=== PATIENT | male | born 1980 | race Hispanic/Latino ===

== ENCOUNTER 2017-11-18 11:05 | Observation (INO) | payer MEDICARE ==
--- NOTE | 2017-11-18 12:09 | Emergency Department Report ---
ED Chest Pain HPI - General Chief Complaint: Chest Pain Stated Complaint: CHEST PAIN Time Seen by Provider: 11/18/17 11:41 Source: patient, EMS Mode of arrival: Stretcher Limitations: Physical Limitation - History of Present Illness Initial Comments: 37-year-old male presents via ambulance from Dr. Maddox (copy preparer) office. He was sent I presume for hospitalization for persistent chest pain. He was given nitroglycerin and aspirin and round. He tells me that Dr. Maddox has planned a stress test as an outpatient but instead the patient has been transported for further evaluation in the hospital. He has had chest pain for one month. It certainly does seem to have musculoskeletal components as it is tender to self palpation and worsens on movement. The patient has a history of pacemaker which was removed within the last 2 years. He states he was placed when he was 13 years old for unknown indications. He is followed by cardiology. He has no known history of coronary artery disease. He does not know what his prior cardiac diagnosis was as a teenager. He has a history of hypertension, diabetes and cerebral palsy. MD Complaint: chest pain -: month(s) Onset: during rest Pain Location: substernal (central chest both left and right side) Pain Radiation: none Severity: moderate Quality: other (soreness) Consistency: constant Improves With: nothing Worsens With: movement Context: other re: denies: nausea, vomting, diaphoresis, dyspnea, sense of impending doom Other Symptoms: denies: cough, fever, syncope Treatments Prior to Arrival: none Aspirin use within the Past 7 Days: (0) No - Related Data On Oral Contraceptives: No Home Medications Medication Instructions Recorded Confirmed Last Taken NIFEdipine [] 90 mg PO DAILY 11/18/17 11/18/17 11/18/17 Valsartan/Hydrochlorothiazide 1 each PO DAILY 11/18/17 11/18/17 11/18/17 [Valsartan-Hctz 320-25 mg Tab] Allergies Allergy/AdvReac Type Severity Reaction Status Date / Time Penicillins Allergy Unknown Verified 06/03/14 11:23 Heart Score - HEART Score History: Slightly suspicious EKG: Normal Age: < 45 Risk factors: 1-2 risk factors Troponin: < normal limit HEART Score: 1 - Critical Actions Critical Actions: 0-3 pts:0.9-1.7%risk of adverse cardiac event.Candidate for discharge ED Review of Systems ROS: Stated complaint: CHEST PAIN Other details as noted in HPI Constitutional: denies: chills, fever Eyes: denies: eye pain, eye discharge, vision change ENT: denies: ear pain, throat pain Respiratory: denies: cough, shortness of breath, wheezing Cardiovascular: denies: chest pain, palpitations Endocrine: no symptoms reported Gastrointestinal: denies: abdominal pain, nausea, diarrhea Genitourinary: denies: urgency, dysuria Musculoskeletal: back pain (chronic back pain states takes Tylenol ). denies: joint swelling, arthralgia Skin: denies: rash, lesions Neurological: denies: headache, weakness, paresthesias Psychiatric: denies: anxiety, depression Hematological/Lymphatic: denies: easy bleeding, easy bruising ED Past Medical Hx - Past Medical History Hx Hypertension: Yes Hx Diabetes: Yes (2011) Additional medical history: pt has pacemaker and hx of irregular heart beat. 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 - Surgical History Hx Pacemaker: Yes (PLACED 1992;BATTERY CHANGED 2003) Additional Surgical History: R leg, R arm - Social History Smoking Status: Former Smoker - Medications Home Medications: Home Medications Medication Instructions Recorded Confirmed Last Taken Type NIFEdipine [] 90 mg PO DAILY 11/18/17 11/18/17 11/18/17 History Valsartan/Hydrochlorothiazide 1 each PO DAILY 11/18/17 11/18/17 11/18/17 History [Valsartan-Hctz 320-25 mg Tab] ED Physical Exam - General Limitations: No Limitations General appearance: alert, in no apparent distress - Head Head exam: Present: atraumatic, normocephalic - Eye Eye exam: Present: normal appearance. Absent: scleral icterus - ENT ENT exam: Present: mucous membranes moist - Neck Neck exam: Present: normal inspection - Respiratory Respiratory exam: Present: normal lung sounds bilaterally. Absent: respiratory distress - Cardiovascular Cardiovascular Exam: Present: regular rate, normal rhythm. Absent: systolic murmur, diastolic murmur, rubs, gallop - GI/Abdominal GI/Abdominal exam: Present: soft, normal bowel sounds. Absent: distended, tenderness, guarding, rebound - Rectal Rectal exam: Present: deferred - Extremities Exam Extremities exam: Present: other (contracted right arm) - Back Exam Back exam: Present: normal inspection. Absent: CVA tenderness (R), CVA tenderness (L) - Neurological Exam Neurological exam: Present: alert, oriented X3, motor sensory deficit (chronic right hemiparesis). Absent: CN II-XII intact (right facial paresis) - Psychiatric Psychiatric exam: Present: normal affect, normal mood - Skin Skin exam: Present: warm, dry, intact, normal color. Absent: rash ED Course Vital Signs 11/18/17 11/18/17 11/18/17 11:20 11:36 11:38 Temperature 97.5 F L Pulse Rate 120 H 104 H Respiratory 16 20 20 Rate Blood Pressure 140/100 Blood Pressure 122/84 [Left] O2 Sat by Pulse 95 93 93 Oximetry - Reevaluation(s) Reevaluation #1: Patient remains comfortable. He will be admitted for further evaluation by Dr. Goyal. 11/18/17 13:35 LUDWIG score - Ludwig Score Age > 65: (0) No Aspirin use within the Past 7 Days: (0) No 3 or more CAD Risk Factors: (0) No 2 or more Angina events in past 24 hrs: (0) No Known CAD with more than 50% Stenosis: (0) No Elevated Cardiac Markers: (0) No ST Deviation Greater than 0.5mm: (0) No LUDWIG Score: 0 ED Medical Decision Making - Lab Data Result diagrams: 11/18/17 12:02 11/18/17 12:02 Laboratory Results - last 24 hr 11/18/17 11/18/17 11/18/17 12:02 12:02 12:02 WBC 12.4 H RBC 5.58 H Hgb 15.6 H Hct 46.3 H MCV 83 L MCH 28 MCHC 34 RDW 15.1 Plt Count 137 L Lymph % (Auto) 17.1 Braxton % (Auto) 6.6 Eos % (Auto) 1.7 Baso % (Auto) 0.6 Lymph # 2.1 Braxton # 0.8 Eos # 0.2 Baso # 0.1 Seg Neutrophils % 74.0 H Seg Neutrophils # 9.2 H PT 11.9 L INR 0.84 L APTT 24.1 L D-Dimer < 135.00 Sodium 132 L Potassium 4.1 Chloride 92.8 L Carbon Dioxide 25 Anion Gap 18 BUN 14 Creatinine 0.8 Estimated GFR > 60 BUN/Creatinine Ratio 18 Glucose 248 H Calcium 9.1 Total Bilirubin Direct Bilirubin Indirect Bilirubin AST ALT Alkaline Phosphatase Total Creatine Kinase CK-MB (CK-2) CK-MB (CK-2) Rel Index Troponin T 0.024 NT-Pro-B Natriuret Pep Total Protein Albumin Albumin/Globulin Ratio Urine Color Urine Turbidity Urine pH Ur Specific Maynard Urine Protein Urine Glucose (UA) Urine Ketones Urine Blood Urine Nitrite Urine Bilirubin Urine Urobilinogen Ur Leukocyte Esterase Urine WBC (Auto) Urine RBC (Auto) Urine Opiates Screen Urine Methadone Screen Ur Barbiturates Screen Ur Phencyclidine Scrn Ur Amphetamines Screen U Benzodiazepines Scrn Urine Cocaine Screen U Marijuana (THC) Screen Drugs of Abuse Note 11/18/17 11/18/17 11/18/17 12:02 12:18 12:18 WBC RBC Hgb Hct MCV MCH MCHC RDW Plt Count Lymph % (Auto) Braxton % (Auto) Eos % (Auto) Baso % (Auto) Lymph # Braxton # Eos # Baso # Seg Neutrophils % Seg Neutrophils # PT INR APTT D-Dimer Sodium Potassium Chloride Carbon Dioxide Anion Gap BUN Creatinine Estimated GFR BUN/Creatinine Ratio Glucose Calcium Total Bilirubin 0.60 Direct Bilirubin < 0.2 Indirect Bilirubin 0.4 AST 13 ALT 18 Alkaline Phosphatase 77 Total Creatine Kinase 51 L CK-MB (CK-2) 3.8 CK-MB (CK-2) Rel Index 7.4 H Troponin T NT-Pro-B Natriuret Pep 49.83 Total Protein 6.3 Albumin 3.9 Albumin/Globulin Ratio 1.6 Urine Color Yellow Urine Turbidity Clear Urine pH 6.0 Ur Specific Maynard 1.009 Urine Protein 30 mg/dl Urine Glucose (UA) 150 Urine Ketones Neg Urine Blood Neg Urine Nitrite Neg Urine Bilirubin Neg Urine Urobilinogen < 2.0 Ur Leukocyte Esterase Neg Urine WBC (Auto) < 1.0 Urine RBC (Auto) 2.0 Urine Opiates Screen Presumptive negative Urine Methadone Screen Presumptive negative Ur Barbiturates Screen Presumptive negative Ur Phencyclidine Scrn Presumptive negative Ur Amphetamines Screen Presumptive negative U Benzodiazepines Scrn Presumptive negative Urine Cocaine Screen Presumptive negative U Marijuana (THC) Screen Presumptive negative Drugs of Abuse Note Disclamer - EKG Data -: EKG Interpreted by [place] EKG shows normal: sinus rhythm Rate: normal - EKG Data Interpretation: other (poor R-wave progression, left axis deviation, no acute ischemic changes.) - Radiology Data interpreted by me: Chest x-ray no acute process Critical care attestation.: If time is entered above; I have spent that time in minutes in the direct care of this critically ill patient, excluding procedure time. ED Disposition Clinical Impression: Essential hypertension Chest pain Qualifiers: Chest pain type: unspecified Qualified Code(s): R07.9 - Chest pain, unspecified Cerebral palsy Qualifiers: Cerebral palsy type: unspecified type Qualified Code(s): G80.9 - Cerebral palsy , unspecified Type 2 diabetes mellitus Qualifiers: Diabetes mellitus [employer] insulin use: unspecified [employer] insulin use status Diabetes mellitus complication status: without complication Qualified Code(s): E11.9 - Type 2 diabetes mellitus without complications Disposition: 09 OP ADMIT IP TO THIS HOSP Is pt being admited?: Yes Does the pt Need Aspirin: Yes Condition: Stable Instructions: Chest Pain (ED), Diabetes Mellitus Type 2 in Adults (ED), Hypertension (ED) Referrals: PRIMARY CARE, [Primary Care Provider] - 3-5 Days Time of Disposition: 13:38
[2017-11-18 12:29] LABS: Basophils # (Auto) 0.1 K/mm3 (0.0-0.1); Basophils % (Auto) 0.6 % (0.0-1.8); Eosinophils # (Auto) 0.2 K/mm3 (0.0-0.4); Eosinophils % (Auto) 1.7 % (0.0-4.3); Hematocrit 46.3 % (35.5-45.6); Hemoglobin 15.6 gm/dl (11.8-15.2); Lymphocytes # (Auto) 2.1 K/mm3 (1.2-5.4); Lymphocytes % (Auto) 17.1 % (13.4-35.0); Mean Corpuscular HGB Conc 34 % (32-34); Mean Corpuscular Hemoglobin 28 pg (28-32); Mean Corpuscular Volume 83 fl (84-94); Monocytes # (Auto) 0.8 K/mm3 (0.0-0.8); Monocytes % (Auto) 6.6 % (0.0-7.3); Platelet Count 137 K/mm3 (140-440); Red Blood Count 5.58 M/mm3 (3.65-5.03); Red Cell Distribution Width 15.1 % (13.2-15.2)
[2017-11-18 12:38] LABS: INR 0.84 (0.87-1.13)
[2017-11-18 12:39] LABS: Partial Thromboplastin Time 24.1 Sec. (24.2-36.6)
[2017-11-18 12:43] LABS: Bilirubin,Urine NEG (Negative); Blood,Urine NEG (Negative); Color,Urine Yellow (Yellow); Urobilinogen,Urine < 2.0 mg/dL (<2.0); WBC,Urine < 1.0 /HPF (0.0-6.0)
[2017-11-18 12:48] LABS: Amphetamine Screen,Urine PRESUMPTIVE NEGATIVE; Benzodiazepines Screen,Urine PRESUMPTIVE NEGATIVE; Cannabinoid Screen,Urine PRESUMPTIVE NEGATIVE; Cocaine Screen,Urine PRESUMPTIVE NEGATIVE; Methadone Screen,Urine PRESUMPTIVE NEGATIVE; Opiate Screen,Urine PRESUMPTIVE NEGATIVE
[2017-11-18 13:19] LABS: BUN/Creatinine Ratio 18; Blood Urea Nitrogen 14 mg/dL (9-20); Calcium 9.1 mg/dL (8.4-10.2); Hemolysis Index 9
--- NOTE | 2017-11-18 13:20 | XRay Report ---
PORTABLE CHEST: Chest pain An AP portable view of the chest demonstrates a normal cardiac contour considering the limits of this technique. The lungs are clear with no evidence of infiltrate, fluid or failure. IMPRESSION: Normal portable chest.
[2017-11-18 13:21] LABS: Alanine Aminotransferase 18 units/L (7-56); Albumin 3.9 g/dL (3.9-5); Creatine Kinase MB 3.8 ng/mL (0.0-4.0)
[2017-11-18 13:30] LABS: Bilirubin,Direct < 0.2 mg/dL (0-0.2)
[2017-11-18] MEDS: MORPHINE IV PRN ×2 (16:58→21:06)
[2017-11-18] MEDS: ZOFRAN IV PRN ×2 (16:58→21:06)
[2017-11-19] MEDS ORDERED: SODIUM CHLORIDE FLUSH SYRINGE 10 ML IV PRN (00:58)
[2017-11-19] MEDS ORDERED: ZOFRAN IV PRN (00:58)
[2017-11-19] MEDS ORDERED: D50W (25GM) Syringe IV PRN (00:58)
[2017-11-19] MEDS ORDERED: TYLENOL PO PRN (00:58)
[2017-11-19] MEDS: MORPHINE IV PRN ×3 (05:57→21:35)
--- NOTE | 2017-11-19 06:57 | Event Note ---
Date: 11/18/17 See H/p in reports
--- NOTE | 2017-11-19 07:17 | History and Physical Report ---
CHIEF COMPLAINT: Left-sided chest pain since 1 month. HISTORY OF PRESENT ILLNESS: The patient is a 37-year-old male with a history of permanent pacemaker insertion about 5 years ago and removal recently who comes in for persistent chest pain of one month duration. The patient was supposed to have a stress test in [facility]' office. Because of the quality of the chest pain, the patient was referred to [facility] for evaluation of chest pain and possible stress test. The patient complains of retrosternal chest pain, intermittent in nature about, 8/10, dull to sharp in quality. He follows with Cardiology for his pacemaker, which was removed recently. No exacerbating or relieving factors. No radiation. No palpitations, diaphoresis, or shortness of breath. PAST MEDICAL HISTORY: significant for hypertension, diabetes, pacemaker for irregular heart, mild cerebral palsy. PAST SURGICAL HISTORY: Permanent pacemaker on the right side of the chest and recent removal. Also surgeries on lower extremities. SOCIAL HISTORY: Former smoker, stopped smoking. FAMILY HISTORY: Significant for hypertension. CURRENT MEDICATIONS: Nifedipine 90 mg once a day and valsartan/hydrochlorothiazide 320/25 once a day. FAMILY HISTORY: Significant for hypertension. REVIEW OF SYSTEMS: A 14-point review of systems done, essentially negative other than the chest pain and some slight shortness of breath on exertion. PHYSICAL EXAMINATION: GENERAL: Young male, cooperative during examination. VITAL SIGNS: Blood pressure is 114/77, temperature is 98, pulse 95, respiratory rate is 17. HEENT: Unremarkable. Pupils equal and reactive. NECK: Supple, no lymphadenopathy, no thyromegaly. LUNGS: Clear to auscultation and percussion. Good air entry. CARDIOVASCULAR: S1, S2 heard. No gallop, no murmur, no rub. Apical impulse in left fifth intercostal space and midclavicular line. ABDOMEN: Soft and benign. No hepatosplenomegaly. No guarding, no rigidity. Hernial orifices are normal. EXTREMITIES: Good pedal pulses. No pedal edema. CENTRAL NERVOUS SYSTEM: Alert and oriented x 4, nonfocal exam. LABORATORY DATA: Labs are significant for white count of 12,400, hemoglobin of 15.6, hematocrit of 46.3, and platelet count of 137. D-dimer is less than 135. Glucose is 248. Sodium is 132, potassium is 4.1. Drug screen was essentially negative. Urine was negative. EKG shows sinus tachycardia, heart rate of 100. Nonspecific ST-T wave changes. 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 ASSESSMENT AND PLAN: 1. Acute coronary syndrome, serial troponins and Lexiscan in the morning. 2. Hyponatremia, mild. Should correct with IV fluids. 3. Type 2 diabetes, coverage for now. Check hemoglobin A1c. Adjust medications. 4. Hypertension. Continue valsartan and nifedipine. 5. Thrombocytopenia, mild. 6. DVT prophylaxis, heparin was not initiated because of the thrombocytopenia. SCDs only. Cardiology consult requested. ADDENDUM: Type 2 diabetes. The patient is not on any medications. The patient initiated on metformin and glimepiride 4 mg once a day. His hemoglobin A1c is high at 9.7. The patient to be counseled about his diabetes by the hospitalist team. JOB# [id number] IVANA/BIB
--- NOTE | 2017-11-19 07:20 | History and Physical Report ---
CONTINUATION LABORATORY DATA: Labs are significant for white count of 12,400, hemoglobin of 15.6, hematocrit of 46.3, and platelet count of 137. D-dimer is less than 135. Glucose is 248. Sodium is 132, potassium is 4.1. Drug screen was essentially negative. Urine was negative. EKG shows sinus tachycardia, heart rate of 100. Nonspecific ST-T wave changes. 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 ASSESSMENT AND PLAN: 1. Acute coronary syndrome, serial troponins and Lexiscan in the morning. 2. Hyponatremia, mild. Should correct with IV fluids. 3. Type 2 diabetes, coverage for now. Check hemoglobin A1c. Adjust medications. 4. Hypertension. Continue valsartan and nifedipine. 5. Thrombocytopenia, mild. 6. DVT prophylaxis, heparin was not initiated because of the thrombocytopenia. SCDs only. Cardiology consult requested. JOB# [id number] IVANA/BIB
[2017-11-19] MEDS ORDERED: LEXISCAN IV ONE ×2 (08:15→08:32)
[2017-11-19] MEDS: GLUCOPHAGE PO SCH ×2 (08:38→18:08)
[2017-11-19] MEDS: AMARYL PO SCH (08:38)
[2017-11-19] MEDS: HumaLOG SUB-Q SCH ×3 (08:38→22:09)
--- NOTE | 2017-11-19 10:05 | Discharge Summary ---
Providers - Providers Date of Admission: 11/18/17 12:23 Date of discharge: 11/20/17 Attending physician: CASSIE MAXWELL MD 11/19/17 00:58 Consult to Physician [CONS] Routine Comment: Consulting Provider: SALLY BAILON Physician Instructions: Reason For Exam: ACS Primary care physician: [employer] Hospitalization Condition: Stable Exam - Constitutional Vitals: Temp Pulse Resp BP Pulse Ox 97.8 F 80 20 139/97 94 11/19/17 04:49 11/19/17 04:49 11/19/17 04:49 11/19/17 04:49 11/19/17 04:49 Plan Follow up with: PRIMARY CARE, [Primary Care Provider] - 3-5 Days Prescriptions: AtorvaSTATin [Lipitor] 40 mg PO QHS #30 tablet Aspirin [Aspirin TAB] 325 mg PO QDAY #30 tablet Glimepiride [Amaryl] 4 mg PO QDDIAB #30 tablet metFORMIN [Glucophage] 500 mg PO BIDDIAB #60 tablet Metoprolol [Lopressor TAB] 50 mg PO BID #60 tablet Ranolazine ER [Ranexa ER] 500 mg PO BID #60 tablet
[2017-11-19] MEDS: PROCARDIA XL PO SCH (11:08)
[2017-11-19] MEDS: DIOVAN PO SCH (11:08)
[2017-11-19] MEDS: PEPCID IV SCH ×2 (11:09→21:33)
[2017-11-19] MEDS: ASPIRIN PO SCH (11:09)
[2017-11-19] MEDS: PERCOCET 5/325 PO PRN (11:09)
[2017-11-19] MEDS: HCTZ PO SCH (11:09)
--- NOTE | 2017-11-19 11:59 | Consultation ---
History of Present Illness Consult date: 11/19/17 Consult reason: chest pain History of present illness: 37 year old male presenting with chest pain. MPI today showing a reversible defect in the LAD distribution with LVEF 44%. Past History Past Medical History: diabetes, hypertension, other (cerebral palsy) Medications and Allergies Allergies Allergy/AdvReac Type Severity Reaction Status Date / Time Penicillins Allergy Unknown Verified 06/03/14 11:23 Home Medications Medication Instructions Recorded Confirmed Last Taken Type NIFEdipine [] 90 mg PO DAILY 11/18/17 11/18/17 11/18/17 History Valsartan/Hydrochlorothiazide 1 each PO DAILY 11/18/17 11/18/17 11/18/17 History [Valsartan-Hctz 320-25 mg Tab] Active Meds: Active Medications Acetaminophen (Tylenol) 650 mg PO Q4H PRN PRN Reason: Pain MILD(1-3)/Fever >100.5/DOSS Aspirin (Aspirin) 325 mg PO QDAY [facility] Last Admin: 11/19/17 11:09 Dose: 325 mg Dextrose (D50w (25gm) Syringe) 50 ml IV PRN PRN PRN Reason: Hypoglycemia Famotidine (Pepcid) 20 mg IV BID [facility] Last Admin: 11/19/17 11:09 Dose: 20 mg Glimepiride (Amaryl) 4 mg PO QDDIAB [facility] Last Admin: 11/19/17 08:38 Dose: Not Given Hydrochlorothiazide (Hctz) 25 mg PO DAILY [facility] Last Admin: 11/19/17 11:09 Dose: 25 mg Influenza Virus Vaccine Quadrival (Fluarix Quad [id number](36 Mos+) 0.5 ml IM .ONCE ONE Stop: 11/19/17 12:01 Insulin Human Lispro (Humalog) 0 unit SUB-Q [facility]; Protocol Last Admin: 11/19/17 08:38 Dose: Not Given Metformin HCl (Glucophage) 500 mg PO BIDDIAB [facility] Last Admin: 11/19/17 08:38 Dose: Not Given Morphine Sulfate (Morphine) 4 mg IV Q4H PRN PRN Reason: Pain Last Admin: 11/19/17 05:57 Dose: 4 mg Nifedipine (Procardia Xl) 90 mg PO DAILY [facility] Last Admin: 11/19/17 11:08 Dose: 90 mg Ondansetron HCl (Zofran) 4 mg IV Q8H PRN PRN Reason: Nausea And Vomiting Last Admin: 11/19/17 05:54 Dose: 4 mg Oxycodone/Acetaminophen (Percocet 5/325) 1 tab PO Q6H PRN PRN Reason: Pain, Moderate (4-6) Last Admin: 11/19/17 11:09 Dose: 1 tab Sodium Chloride (Sodium Chloride Flush Syringe 10 Ml) 10 ml IV BID [place] Sodium Chloride (Sodium Chloride Flush Syringe 10 Ml) 10 ml IV PRN PRN PRN Reason: LINE FLUSH Valsartan (Diovan) 320 mg PO QDAY [place] Last Admin: 11/19/17 11:08 Dose: 320 mg Review of Systems All systems: negative Physical Examination Vital Signs Pulse Resp Pulse Ox 103 H 19 93 11/18/17 11:12 11/18/17 11:12 11/18/17 11:12 General appearance: no acute distress HEENT: Positive: PERRL Neck: Positive: neck supple Cardiac: Positive: Reg Rate and Rhythm Lungs: Positive: Normal Exam Abdomen: Positive: Soft Extremities: Present: normal Results 11/18/17 12:02 11/18/17 12:02 Cardiac Enzymes 11/18/17 Range/Units 12:02 AST 13 (5-40) units/L CK-MB (CK-2) 3.8 (0.0-4.0) ng/mL Coagulation 11/18/17 Range/Units 12:02 PT 11.9 L (12.2-14.9) Sec. INR 0.84 L (0.87-1.13) APTT 24.1 L (24.2-36.6) Sec. CBC 11/18/17 Range/Units 12:02 WBC 12.4 H (4.5-11.0) K/mm3 RBC 5.58 H (3.65-5.03) M/mm3 Hgb 15.6 H (11.8-15.2) gm/dl Hct 46.3 H (35.5-45.6) % Plt Count 137 L (140-440) K/mm3 Lymph # 2.1 (1.2-5.4) K/mm3 [place] # 0.8 (0.0-0.8) K/mm3 Eos # 0.2 (0.0-0.4) K/mm3 Baso # 0.1 (0.0-0.1) K/mm3 Comprehensive Metabolic Panel 11/18/17 11/18/17 Range/Units 12:02 12:02 Sodium 132 L (137-145) mmol/L Potassium 4.1 (3.6-5.0) mmol/L Chloride 92.8 L (98-107) mmol/L Carbon Dioxide 25 (22-30) mmol/L BUN 14 (9-20) mg/dL Creatinine 0.8 (0.8-1.5) mg/dL Glucose 248 H (75-100) mg/dL Calcium 9.1 (8.4-10.2) mg/dL Direct Bilirubin < 0.2 (0-0.2) mg/dL Indirect Bilirubin 0.4 mg/dL AST 13 (5-40) units/L ALT 18 (7-56) units/L Alkaline Phosphatase 77 (35-129) units/L Total Protein 6.3 (6.3-8.2) g/dL Albumin 3.9 (3.9-5) g/dL EKG interpretations - Telemetry EKG Rhythm: Sinus Rhythm Assessment and Plan Chest pain Abnormal MPI Ischemic in the LAD distribution LVEF 44% Systemic Hypertension Poorly controlled DM Cerebral palsy Recommendations: Coronary angiography in am
[2017-11-19] MEDS ORDERED: NACL 0.9% 500 ML 500 ML IV SCH (12:00)
[2017-11-19] MEDS ORDERED: Fluarix Quad 2017-2018(36 MOS+ IM ONE (12:00)
--- NOTE | 2017-11-19 13:20 | Treadmill Report ---
INDICATION: Chest pain. ORDERING PHYSICIAN: Mary Ellen Bui MD FINDINGS: There is evidence of a small moderately reversible, mid anterolateral wall defect suggesting ischemia in the LAD distribution. Gated wall imaging showing a reduced ejection fraction measured at 44% with global hypokinesis. IMPRESSION: 1. This is an abnormal perfusion scan suggesting ischemia in the LAD distribution. 2. Global left ventricular hypokinesis with an ejection fraction measured at 44%. 3. This is an intermediate risk myocardial perfusion scan associated with cardiovascular event rate of 1-3% in the next 1 year. 4. Clinical correlation is recommended. JOB# [id number] DELROY/BIB
--- NOTE | 2017-11-19 16:35 | Event Note ---
Date: 11/19/17 Patient seen and examined, he does not meet inpatient criteria at this time. Patient status post MPI today showing a reversible defect in the LAD distribution with LVEF 44%. Coronary angiography scheduled for a.m. Continue medical management as per H&P
[2017-11-19] MEDS: SODIUM CHLORIDE FLUSH SYRINGE 10 ML IV SCH ×2 (18:06→21:34)
[2017-11-20 05:43] LABS: Basophils # (Auto) 0.1 K/mm3 (0.0-0.1); Basophils % (Auto) 0.6 % (0.0-1.8); Eosinophils # (Auto) 0.2 K/mm3 (0.0-0.4); Eosinophils % (Auto) 1.7 % (0.0-4.3); Hematocrit 48.7 % (35.5-45.6); Hemoglobin 16.6 gm/dl (11.8-15.2); Lymphocytes # (Auto) 2.2 K/mm3 (1.2-5.4); Lymphocytes % (Auto) 19.2 % (13.4-35.0); Mean Corpuscular HGB Conc 34 % (32-34); Mean Corpuscular Hemoglobin 29 pg (28-32); Mean Corpuscular Volume 84 fl (84-94); Monocytes # (Auto) 0.8 K/mm3 (0.0-0.8); Monocytes % (Auto) 7.1 % (0.0-7.3); Platelet Count 143 K/mm3 (140-440); Red Blood Count 5.79 M/mm3 (3.65-5.03); Red Cell Distribution Width 15.3 % (13.2-15.2)
[2017-11-20 05:54] LABS: INR 0.85 (0.87-1.13)
[2017-11-20 05:55] LABS: Partial Thromboplastin Time 26.1 Sec. (24.2-36.6)
[2017-11-20 06:07] LABS: BUN/Creatinine Ratio 19; Blood Urea Nitrogen 19 mg/dL (9-20); Hemolysis Index 16
[2017-11-20] MEDS: MORPHINE IV PRN (06:09)
[2017-11-20] MEDS: GLUCOPHAGE PO SCH (07:57)
[2017-11-20] MEDS: HumaLOG SUB-Q SCH ×2 (07:57→13:32)
[2017-11-20] MEDS: AMARYL PO SCH (07:57)
[2017-11-20] MEDS ORDERED: MORPHINE ONE (10:17)
[2017-11-20] MEDS ORDERED: ASPIRIN ONE (10:23)
[2017-11-20] MEDS ORDERED: NACL 0.9% 500 ML 500 ML ONE (10:23)
[2017-11-20] MEDS: ASPIRIN PO SCH (10:28)
[2017-11-20] MEDS ORDERED: VERSED ONE (11:38)
[2017-11-20] MEDS ORDERED: NACL 0.9% IR ONE (11:50)
[2017-11-20] MEDS ORDERED: HEPARIN IR ONE (11:50)
[2017-11-20] MEDS ORDERED: SUBLIMAZE IV ONE (11:55)
[2017-11-20] MEDS ORDERED: XYLOCAINE 2% INFILTRATI ONE (11:57)
--- NOTE | 2017-11-20 12:26 | Event Note ---
Date: 11/20/17 Cardiac cath done via R femoral approach. Findings: 1. 100% occluded diagonal branch. 2. LVEF 45-50%. Recommend medical therapy. OK for cardiac discharge. Antianginal medical therapy with ranexa 500 BID.
[2017-11-20] MEDS ORDERED: RANEXA ER PO SCH (13:00)
[2017-11-20] MEDS ORDERED: LOPRESSOR PO SCH (13:00)
[2017-11-20] MEDS ORDERED: IMDUR PO SCH (13:00)
[2017-11-20] MEDS: PROCARDIA XL PO SCH (13:20)
[2017-11-20] MEDS: DIOVAN PO SCH (13:22)
[2017-11-20] MEDS: HCTZ PO SCH (13:23)
[2017-11-20] MEDS: PEPCID IV SCH (13:23)
[2017-11-20] MEDS: SODIUM CHLORIDE FLUSH SYRINGE 10 ML IV SCH (13:24)
[2017-11-20] MEDS: PERCOCET 5/325 PO PRN (15:04)
[2017-11-20 15:08] VITALS: BP 149/107
--- NOTE | 2017-11-20 16:19 | Progress Note ---
Assessment and Plan Assessment and plan: 37 year old man presented with ED with complaints of chest pain. Patient doesn't meet inpatient status at this time. Will continue observation status Chest Pain Cardiology consulted, serial CE negative, MPI today showing a reversible defect in the LAD distribution with LVEF 44%, cath for am Hyponatremia mild will treat with IVF DM type 2 ADA diet, SSI, accucheks achs HTN Continue antihypertensives Thrombocytopenia will monitor DVT prophylaxis SCD for now History Interval history: Patient seen and examined. No new events overnight. Labs and nursing notes reviewed. Hospitalist Physical - Constitutional Vitals: Temp Pulse Resp BP Pulse Ox 98.0 F 94 H 18 149/107 97 11/20/17 15:06 11/20/17 15:06 11/20/17 15:06 11/20/17 15:06 11/20/17 15:06 General appearance: Present: no acute distress, well-nourished, obese - EENT Eyes: Present: PERRL, EOM intact ENT: hearing intact, clear oral mucosa - Neck Neck: Present: supple, normal ROM - Respiratory Respiratory effort: normal Respiratory: bilateral: CTA - Cardiovascular Rhythm: regular Heart Sounds: Present: S1 & S2. Absent: rub, click - Extremities Extremities: no ischemia, No edema Extremity abnormal: other (R hand deformity) - Abdominal General gastrointestinal: soft, non-tender, non-distended - Integumentary Integumentary: Present: clear, warm, dry - Psychiatric Psychiatric: appropriate mood/affect, intact judgment & insight, cooperative Results - Labs CBC & Chem 7: 11/20/17 05:05 11/20/17 05:05 Labs: Laboratory Last Values WBC 11.7 K/mm3 (4.5-11.0) H 11/20/17 05:05 RBC 5.79 M/mm3 (3.65-5.03) H 11/20/17 05:05 Hgb 16.6 gm/dl (11.8-15.2) H 11/20/17 05:05 Hct 48.7 % (35.5-45.6) H 11/20/17 05:05 MCV 84 fl (84-94) 11/20/17 05:05 MCH 29 pg (28-32) 11/20/17 05:05 MCHC 34 % (32-34) 11/20/17 05:05 RDW 15.3 % (13.2-15.2) H 11/20/17 05:05 Plt Count 143 K/mm3 (140-440) 11/20/17 05:05 Lymph % (Auto) 19.2 % (13.4-35.0) 11/20/17 05:05 [place] % (Auto) 7.1 % (0.0-7.3) 11/20/17 05:05 Eos % (Auto) 1.7 % (0.0-4.3) 11/20/17 05:05 Baso % (Auto) 0.6 % (0.0-1.8) 11/20/17 05:05 Lymph # 2.2 K/mm3 (1.2-5.4) 11/20/17 05:05 [place] # 0.8 K/mm3 (0.0-0.8) 11/20/17 05:05 Eos # 0.2 K/mm3 (0.0-0.4) 11/20/17 05:05 Baso # 0.1 K/mm3 (0.0-0.1) 11/20/17 05:05 Seg Neutrophils % 71.4 % (40.0-70.0) H 11/20/17 05:05 Seg Neutrophils # 8.3 K/mm3 (1.8-7.7) H 11/20/17 05:05 PT 12.0 Sec. (12.2-14.9) L 11/20/17 05:05 INR 0.85 (0.87-1.13) L 11/20/17 05:05 APTT 26.1 Sec. (24.2-36.6) 11/20/17 05:05 D-Dimer < 135.00 ng/mlDDU (0-234) 11/18/17 12:02 Sodium 136 mmol/L (137-145) L 11/20/17 05:05 Potassium 4.0 mmol/L (3.6-5.0) 11/20/17 05:05 Chloride 94.9 mmol/L (98-107) L 11/20/17 05:05 Carbon Dioxide 26 mmol/L (22-30) 11/20/17 05:05 Anion Gap 19 mmol/L 11/20/17 05:05 BUN 19 mg/dL (9-20) 11/20/17 05:05 Creatinine 1.0 mg/dL (0.8-1.5) 11/20/17 05:05 Estimated GFR > 60 ml/min 11/20/17 05:05 BUN/Creatinine Ratio 19 % 11/20/17 05:05 Glucose 312 mg/dL (75-100) H 11/20/17 05:05 POC Glucose 233 (70-105) H 11/20/17 05:31 Hemoglobin A1c 9.7 % (4-6) H 11/19/17 02:06 Calcium 9.0 mg/dL (8.4-10.2) 11/20/17 05:05 Total Bilirubin 0.60 mg/dL (0.1-1.2) 11/18/17 12:02 Direct Bilirubin < 0.2 mg/dL (0-0.2) 11/18/17 12:02 Indirect Bilirubin 0.4 mg/dL 11/18/17 12:02 AST 13 units/L (5-40) 11/18/17 12:02 ALT 18 units/L (7-56) 11/18/17 12:02 Alkaline Phosphatase 77 units/L (35-129) 11/18/17 12:02 Total Creatine Kinase 51 units/L (55-170) L 11/18/17 12:02 CK-MB (CK-2) 3.8 ng/mL (0.0-4.0) 11/18/17 12:02 CK-MB (CK-2) Rel Index 7.4 (0-4) H 11/18/17 12:02 Troponin T 0.027 ng/mL (0.00-0.029) 11/19/17 16:01 NT-Pro-B Natriuret Pep 49.83 pg/mL (0-450) 11/18/17 12:02 Total Protein 6.3 g/dL (6.3-8.2) 11/18/17 12:02 Albumin 3.9 g/dL (3.9-5) 11/18/17 12:02 Albumin/Globulin Ratio 1.6 % 11/18/17 12:02 Urine Color Yellow (Yellow) 11/18/17 12:18 Urine Turbidity Clear (Clear) 11/18/17 12:18 Urine pH 6.0 (5.0-7.0) 11/18/17 12:18 Ur Specific [place] 1.009 (1.003-1.030) 11/18/17 12:18 Urine Protein 30 mg/dl mg/dL (Negative) 11/18/17 12:18 Urine Glucose (UA) 150 mg/dL (Negative) 11/18/17 12:18 Urine Ketones Neg mg/dL (Negative) 11/18/17 12:18 Urine Blood Neg (Negative) 11/18/17 12:18 Urine Nitrite Neg (Negative) 11/18/17 12:18 Urine Bilirubin Neg (Negative) 11/18/17 12:18 Urine Urobilinogen < 2.0 mg/dL (<2.0) 11/18/17 12:18 Ur Leukocyte Esterase Neg (Negative) 11/18/17 12:18 Urine WBC (Auto) < 1.0 /HPF (0.0-6.0) 11/18/17 12:18 Urine RBC (Auto) 2.0 /HPF (0.0-6.0) 11/18/17 12:18 Urine Opiates Screen Presumptive negative 11/18/17 12:18 Urine Methadone Screen Presumptive negative 11/18/17 12:18 Ur Barbiturates Screen Presumptive negative 11/18/17 12:18 Ur Phencyclidine Scrn Presumptive negative 11/18/17 12:18 Ur Amphetamines Screen Presumptive negative 11/18/17 12:18 U Benzodiazepines Scrn Presumptive negative 11/18/17 12:18 Urine Cocaine Screen Presumptive negative 11/18/17 12:18 U Marijuana (THC) Screen Presumptive negative 11/18/17 12:18 Drugs of Abuse Note Disclamer 11/18/17 12:18
--- NOTE | 2017-11-21 00:02 | Cardiac Catherization Report ---
CARDIAC CATHETERIZATION REASON FOR PROCEDURE: Chest pain. PROCEDURE: The patient was prepped and draped in a sterile fashion after informed consent. Right femoral artery was entered using Seldinger technique followed by placement of a 6-Khmer sheath. Selective left and right coronary angiography was performed using #4 right and left Yuly catheters. A pigtail catheter was used for left ventricle angiography. The catheters were removed, sheath removed and hemostasis achieved using an Angio-Seal device. The patient was returned to the postprocedure unit in stable condition. There were no complications. FINDINGS: HEMODYNAMICS: Left ventricular end-diastolic pressure was 18 following coronary angiography. Ascending aortic pressure was 134/101. There was no significant pressure gradient on pullback across the aortic valve. CORONARY ANGIOGRAPHY: The left main coronary artery was short, free of significant disease. The first diagonal branch of the LAD was a medium sized vessel that was occluded at its ostium. This was a long segment of chronic total occlusion of this branch from its ostium. There was faint reconstitution by left to left collaterals. After the origin of the first diagonal branch, there was diffuse mild to moderate atherosclerosis of the proximal, mid, and distal segments of a medium caliber left anterior descending artery. The mid obtuse marginal branch of the circumflex artery contained a long, 50-60% stenosis of its mid segment. The right coronary artery was a large, dominant vessel. There are mild luminal irregularities in the mid segment, but otherwise this vessel was free of significant disease. Left ventricular systolic function was at lower limits of normal, estimated ejection fraction 45-50%. CONCLUSION: 1. Chronic total occlusion of the medium sized first diagonal branch of the LAD. 2. Otherwise, diffuse mild to moderate nonobstructive disease of the LAD and mid obtuse marginal branch. 3. Left ventricular systolic function at the lower limits of normal, ejection fraction 45-50%. RECOMMENDATION: 1. Aggressive risk factor modification for nonobstructive disease. The patient is strongly recommended for smoking cessation. 2. Medical therapy for chronic total branch vessel occlusion of the diagonal. JOB# [id number] CA/NTS
== END 2017-11-20 16:40 | disposition home or self-care (01) ==
LOC: ED 11:05 → INTOOBSV 12:23 → 4A 12:23
PROVIDERS: ADMIT Internal Medicine; ATTEND Internal Medicine
DX: I24.9 Acute ischemic heart disease, unspecified (principal); E87.1 Hypo-osmolality and hyponatremia; I10 Essential (primary) hypertension; D69.6 Thrombocytopenia, unspecified; G80.9 Cerebral palsy, unspecified; E66.9 Obesity, unspecified; E11.65 Type 2 diabetes mellitus with hyperglycemia; G47.30 Sleep apnea, unspecified; Z68.36 Body mass index [BMI] 36.0-36.9, adult; Z99.89 Dependence on other enabling machines and devices; Z95.0 Presence of cardiac pacemaker; Z87.891 Personal history of nicotine dependence; Z82.49 Family history of ischemic heart disease and other diseases of the circulatory system
CPT/HCPCS: 36415; 71045; 78452; 80048; 80074; 80307; 81001; 82550; 82553; 82962; 83036; 83880; 84484; 85025; 85379; 85610; 85730; 90686; 93005; 93010; 93017; 93306; 93458; 96374; 96375; 96376; 99285; A9502; C1760; C1894; G0378; J1644; J2250; J2270; J2405; J2785; J3010; J7040; J7050; Q9967

== ENCOUNTER 2019-05-17 08:32 | Inpatient (IN) | payer MEDICARE ==
[2019-05-17] MEDS ORDERED: SODIUM CHLORIDE 0.9% 1000 ML 1,000 ML IV ONE ×2 (09:12)
[2019-05-17] MEDS ORDERED: ASPIRIN 325 MG TAB PO ONE (09:12)
[2019-05-17] MEDS ORDERED: MORPHINE 2 MG/1 ML INJ IV ONE (09:13)
[2019-05-17] MEDS ORDERED: ONDANSETRON 4 MG/2 ML INJ IV ONE (09:13)
[2019-05-17] MEDS ORDERED: SODIUM CHLORIDE 0.9% 1000 ML IV SOLN IV ONE (09:15)
[2019-05-17] MEDS ORDERED: MORPHINE 4 MG/1 ML INJ IV ONE (09:17)
[2019-05-17] MEDS ORDERED: ACETAMINOPHEN 500 MG TAB PO ONE (09:18)
--- NOTE | 2019-05-17 09:24 | Event Note ---
Date of service: 05/17/19 Face to Face: This is a 38-year-old gentleman male patient, not known to this provider previously, history of cerebral palsy, right upper extremity contracture, poor baseline mobility, history of ischemic heart disease, follows with Dr. Mayberry Patient had a cardiac catheterization in 2018 demonstrated occlusive disease. The patient presents today with fever, tachycardia, chest wall pain, back pain, shortness of breath, and irritative, obstructive urinary symptoms. Does not endorse any dyschezia, or rectal pain. Has bilateral CVA tenderness, and anterior reproducible chest wall pain. Plan is to treat symptoms, and resuscitated according to the sepsis pathway. Given morbid obesity, we will resuscitate based off the patient's ideal body weight, proximally 77 kg. Patient also endorses ability to tolerate penicillins, does not endorse true anaphylactic/anaphylactoid reaction. As a third-generation cephalosporin, ceftriaxone was structurally dissimilar to penicillins, and is unlikely to cause anaphylactic, anaphylactoid reaction. Given fever, tachycardia, complaint of back pain, chest pain, flank pain, we will obtain CT scan of the chest, abdomen and pelvis to exclude surgical disease. Therefore, empiric anticoagulation will be withheld. Discussed plan of admission with the patient, who verbalizes understanding. Discussed plan of care with JOANA Cedeño who is in agreement Elevated blood pressure is reviewed and appreciated, we will treat his symptoms and reassessed, preferred to withhold antihypertensive agents at this time, given concern for systemic bacterial illness. Vital Signs 05/17/19 08:45 Temperature 100.4 F H Pulse Rate 110 H Respiratory 18 Rate Blood Pressure 199/129 Blood Pressure 199/129 [Left] O2 Sat by Pulse 94 Oximetry Print Report Referring Physician: PRAVIN CEDEÑO Patient Name: MARIS US JR Date of : 1980 Sex: Male Report Date: 2019-05-17 Report Status: Finalized Findings [facility] [address] [place] [address] XRay Report Signed Patient: MARIS US JR MR#: [id number] : 1980 Acct:[id number] Age/Sex: 38 / M ADM Date: 05/17/19 Loc: ED Attending Dr: Ordering Physician: JOANA DE Date of Service: 05/17/19 Procedure(s): XR chest 1V ap Accession Number(s): [id number] cc: JOANA DE Fluoro Time In Minutes: CHEST 1 VIEW INDICATION: suspected sepsis, CP. COMPARISON: 11/18/2017 FINDINGS: Support devices: None. Heart: Within normal limits. Pulmonary vasculature: Normal. Lungs/Pleura: The lungs are normally expanded and clear except for subtle opacification at the right costophrenic angle. Additional findings: None. IMPRESSION: No CHF or pneumonia. Possible tiny right pleural effusion. Signer Name: Steve Lance MD Signed: 05/17/2019 9:37 AM Workstation Name: [id number] Transcribed By: REF Dictated By: STEVE LANCE MD Electronically Authenticated By: STEVE LANCE MD Signed Date/Time: 05/17/19 0937
--- NOTE | 2019-05-17 09:27 | Emergency Department Report ---
<PRAVIN RENDON - Last Filed: 05/17/19 16:25> ED Chest Pain HPI - General Chief Complaint: Chest Pain Stated Complaint: CHEST PAIN Time Seen by Provider: 05/17/19 09:03 Source: EMS Mode of arrival: Stretcher Limitations: No Limitations - History of Present Illness Initial Comments: Patient is a 38-year-old male presents to emergency room with complaints of substernal and left-sided chest pain that began at 3 AM this morning. He describes the pain as an aching and sharp pain. States that the pain radiates to his back. Associated shortness of breath, pleuritic chest pain, nausea, diaphoresis, dry cough, subjective fever/chills. States that he is also had some dysuria. denies any abdominal pain, penile discharge, testicular edema or pain. He has a past medical history of CAD, sleep apnea, obesity, HTN, pacemaker placement at age 11 which was removed 4 years ago. He had a cardiac cath performed on [id number] which showed chronic total occlusion of the first diagonal branch of the LAD, diffuse mild to moderate nonobstructive disease of the LAD and mid obtuse marginal branch, ejection fraction of 45-50%. pt states that he thought he had an allergy to PCN as a child but has been given penicillin since then with no reaction, states he does not have an allergy. Severity scale (0 -10): 8 - Related Data Home Medications Medication Instructions Recorded Confirmed Last Taken NIFEdipine [Nifedipine ER] 90 mg PO DAILY 11/18/17 05/17/19 05/17/19 HYDROcodone/APAP 10-325 [[place] 1 each PO Q8HR PRN 05/17/19 05/17/19 05/17/19 10/325] Previous Rx's Medication Instructions Recorded Last Taken Type Metoprolol [Lopressor TAB] 50 mg PO BID #60 tablet 11/20/17 05/17/19 Rx Allergies Allergy/AdvReac Type Severity Reaction Status Date / Time Penicillins Allergy Unknown Verified 06/03/14 11:23 Heart Score - HEART Score History: Moderately suspicious EKG: Non-specific Age: < 45 Risk factors: > 3 risk factors or hx of atherosclerotic disease Troponin: 1-3x normal limit HEART Score: 5 ED Review of Systems Comment: All other systems reviewed and negative ED Past Medical Hx - Past Medical History Previous Medical History?: Yes Hx Hypertension: Yes Hx Diabetes: Yes (2011) Additional medical history: pt has pacemaker and hx of irregular heart beat. 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 - Surgical History Past Surgical History?: No Hx Pacemaker: No (s/p pacemaker removal) Additional Surgical History: R leg, R arm - Social History Smoking Status: Former Smoker Substance Use Type: None - Medications Home Medications: Home Medications Medication Instructions Recorded Confirmed Last Taken Type NIFEdipine [Nifedipine ER] 90 mg PO DAILY 11/18/17 05/17/19 05/17/19 History Metoprolol [Lopressor TAB] 50 mg PO BID #60 tablet 11/20/17 05/17/19 05/17/19 Rx HYDROcodone/APAP 10-325 [[place] 1 each PO Q8HR PRN 05/17/19 05/17/19 05/17/19 History 10/325] ED Physical Exam - General Limitations: No Limitations General appearance: alert, in no apparent distress - Head Head exam: Present: atraumatic, normocephalic - Eye Eye exam: Present: normal appearance - ENT ENT exam: Present: mucous membranes moist - Respiratory Respiratory exam: Present: normal lung sounds bilaterally. Absent: respiratory distress, wheezes, rales, rhonchi, stridor, chest wall tenderness, accessory muscle use, decreased breath sounds, prolonged expiratory - Cardiovascular Cardiovascular Exam: Present: normal rhythm, tachycardia, normal heart sounds. Absent: systolic murmur, rubs, gallop - GI/Abdominal GI/Abdominal exam: Present: soft, normal bowel sounds. Absent: distended, tenderness, guarding, rebound, rigid - Neurological Exam Neurological exam: Present: alert, oriented X3 - Psychiatric Psychiatric exam: Present: normal affect, normal mood - Skin Skin exam: Present: warm, dry, intact ED Course - Consultations Consultation #1: 05/17/19 12:[address] Mayberry, cardiology who is well known to him, will consult on patient Consultation #2: 05/17/19 14:[address] Wilkinson, hospitalist for admission, he states he will evaluate patient. ALEX score - Alex Score Age > 65: (0) No Aspirin use within the Past 7 Days: (1) Yes 3 or more CAD Risk Factors: (1) Yes 2 or more Angina events in past 24 hrs: (0) No Known CAD with more than 50% Stenosis: (1) Yes Elevated Cardiac Markers: (1) Yes ST Deviation Greater than 0.5mm: (0) No ALEX Score: 4 ED Medical Decision Making - Lab Data Result diagrams: 05/17/19 09:25 05/17/19 09:25 - EKG Data EKG shows normal: sinus rhythm Rate: tachycardia - EKG Data 05/17/19 09:36 LAFB LAD poor R wave progression compared to EKG on 11/19/2017 the poor R wave progression is new - Radiology Data Radiology results: report reviewed CTA CHEST WITH CONTRAST INDICATION / CLINICAL INFORMATION: Chest and back pain. Sepsis. TECHNIQUE: Axial CT images were obtained through the chest after injection of 100 mL Omnipaque 350 IV contrast. 3 plane MIP and/or 3D reconstructions were produced. All CT scans at this location are performed using CT dose reduction for ALARA by means of automated exposure control. COMPARISON: Images from CT chest dated 09/09/13 are not immediately available. FINDINGS: Mild respiratory motion artifact obscures some distal pulmonary artery branches. PULMONARY ARTERIES: No definite pulmonary emboli. THORACIC AORTA: No significant abnormality. HEART: No significant abnormality. CORONARY ARTERIES: Moderate coronary artery calcification especially involving the LAD. MEDIASTINUM / HEMANTH: No significant abnormality. PLEURA: No pleural effusion. No pneumothorax. LUNGS: Mild interstitial pulmonary edema. No acute airspace disease. ADDITIONAL FINDINGS: None. UPPER ABDOMEN: No acute findings. SKELETAL STRUCTURES: No signif icant osseous abnormality. IMPRESSION: 1. No definite CT evidence for pulmonary emboli. 2. Mild interstitial pulmonary edema. No acute airspace disease. 3. Moderate coronary artery calcification in this 38-year-old patient. Signer Name: Jose G Gaspar MD Signed: 05/17/2019 2:11 PM Workstation Name: [id number] Transcribed By: DT Dictated By: James Gaspar MD Electronically Authenticated By: James Gaspar MD Signed Date/Time: 05/17/[address] ABDOMEN AND PELVIS WITH CONTRAST INDICATION / CLINICAL INFORMATION: Chest and back pain. Sepsis. TECHNIQUE: Axial CT images were obtained through the abdomen and pelvis after 100 MLO Omnipaque 350 IV contrast. Study performed in conjunction with CTA chest. All CT scans at this location are performed using CT dose reduction for ALARA by means of automated exposure control. COMPARISON: None available. FINDINGS: LOWER CHEST: Mild bibasilar edema. LIVER: Liver is mildly enlarged with a prominent caudate lobe. No focal lesion. GALLBLADDER: Distended without acute abnormality. BILE DUCTS: No significant abnormality. PANCREAS: No significant abnormality. SPLEEN: Spleen is mildly enlarged measuring 15.7 cm in craniocaudad dimension. ADRENALS: No significant abnormality. RIGHT KIDNEY and URETER: No significant abnormality. LEFT KIDNEY and URETER: No significant abnormality. STOMACH and SMALL BOWEL: No significant abnormality. COLON: No significant abnormality. APPENDIX: No significant abnormality. PERITONEUM: No free fluid. No free air. No fluid collection. LYMPH NODES: No significant adenopathy. AORTA and ARTERIES: Mild atherosclerotic calcification without acute abnormality. IVC and VEINS: No significant abnormality. URINARY BLADDER: No significant abnormality. REPRODUCTIVE ORGANS: No significant abnormality. ADDITIONAL FINDINGS: None. SKELETAL SYSTEM: Right L3 and L4 transverse process fractures which appear subacute. IMPRESSION: 1. Mild hepatosplenomegaly. 2. No acute inflammatory process or bowel obstruction. 3. No urinary tract stones or hydronephrosis. 4. Right L3 and L4 transverse process fractures which appear subacute. Correlation for recent trauma is recommended. Signer Name: Jose G Gaspar MD Signed: 05/17/2019 2:17 PM Workstation Name: [id number] Transcribed By: DT Dictated By: James Gaspar MD Electronically Authenticated By: James Gaspar MD Signed Date/Time: 05/17/19 1417 - Medical Decision Making Patient is a 38-year-old male presents to emergency room with complaints of substernal and left-sided chest pain that began at 3 AM this morning. He describes the pain as an aching and sharp pain. States that the pain radiates to his back. Associated shortness of breath, pleuritic chest pain, nausea, diaphoresis, dry cough, subjective fever/chills. States that he is also had some dysuria. denies any abdominal pain, penile discharge, testicular edema or pain. He has a past medical history of CAD, sleep apnea, obesity, HTN, pacemaker placement at age 11 which was removed 4 years ago. He had a cardiac cath performed on [id number] which showed chronic total occlusion of the first diagonal branch of the LAD, diffuse mild to moderate nonobstructive disease of the LAD and mid obtuse marginal branch, ejection fraction of 45-50%. pt states that he thought he had an allergy to PCN as a child but has been given penicillin since then with no reaction, states he does not have an allergy. initial vitals with temperature of 100.4, tachycardia, and hypertension which all improved upon repeats. based on initial vitals sepsis protocol was initiated, WBC was normal, no obvious source for fever. no PNA on XR, UA is normal, no intraabdominal infection, no PE. pt evaluated at bedside by Dr. Bansal, recommends admission please see his note. CT abd pelvis: 1. Mild hepatosplenomegaly. 2. No acute inflammatory process or bowel obstruction. 3. No urinary tract stones or hydronephrosis. 4. Right L3 and L4 transverse process fractures which appear subacute. Correlation for recent trauma is recommended. d-dimer was postiive, CTA chest was performed, CTA chest shows: 1. No definite CT evidence for pulmonary emboli. 2. Mild interstitial pulmonary edema. No acute airspace disease. 3. Moderate coronary artery calcification in this 38-year-old patient. troponin is elevated, electrolytes were low and repleted. heart score is 5 and ALEX score is 4, pt admits in patient criteria for further cardiac evaluation. spoke with Dr. Mayberry, cardiology who is well known to him, will consult on patient. spoke with Dr. Wilkinson, hospitalist for admission, he states he will evaluate patient. pt admitted to the hospitalist service. - Differential Diagnosis sepsis, pyelonephritis, ACS, PE, PNA, UTI, CHF, pleural effusion ED Disposition Clinical Impression: SOB (shortness of breath), Essential hypertension, Elevated troponin Chest pain Qualifiers: Chest pain type: unspecified Qualified Code(s): R07.9 - Chest pain, unspecified CAD (coronary artery disease) Qualifiers: Coronary Disease-Associated Artery/Lesion type: unspecified vessel or lesion type [place] vs. transplanted heart: [place] heart Associated angina: with stable angina Qualified Code(s): I25.118 - Atherosclerotic heart disease of [place] coronary artery with other forms of angina pectoris Disposition: OP ADMIT IP TO THIS HOSP Is pt being admited?: Yes Does the pt Need Aspirin: No Condition: Stable <MERLENE BANSAL - Last Filed: 05/18/19 07:11> ED Review of Systems ROS: Stated complaint: CHEST PAIN Other details as noted in HPI ED Course Vital Signs 05/17/19 05/17/19 05/17/19 08:45 11:08 11:47 Temperature 100.4 F H 98.9 F Pulse Rate 110 H 93 H 98 H Respiratory 18 16 16 Rate Blood Pressure 199/129 Blood Pressure 199/129 159/102 [Left] O2 Sat by Pulse 94 94 99 Oximetry 05/17/19 05/17/19 05/17/19 12:17 14:12 14:44 Temperature Pulse Rate 95 H 94 H 95 H Respiratory 14 16 Rate Blood Pressure 166/106 Blood Pressure 133/84 166/112 [Left] O2 Sat by Pulse 100 94 Oximetry 05/17/19 14:48 Temperature Pulse Rate 93 H Respiratory 16 Rate Blood Pressure Blood Pressure 150/99 [Left] O2 Sat by Pulse 94 Oximetry ED Medical Decision Making - Lab Data Result diagrams: 05/17/19 09:25 05/17/19 09:25 Critical care attestation.: If time is entered above; I have spent that time in minutes in the direct care of this critically ill patient, excluding procedure time. ED Disposition Is pt being admited?: Yes
--- NOTE | 2019-05-17 09:41 | XRay Report ---
CHEST 1 VIEW INDICATION: suspected sepsis, CP. COMPARISON: 11/18/2017 FINDINGS: Support devices: None. Heart: Within normal limits. Pulmonary vasculature: Normal. Lungs/Pleura: The lungs are normally expanded and clear except for subtle opacification at the right costophrenic angle. Additional findings: None. IMPRESSION: No CHF or pneumonia. Possible tiny right pleural effusion. Signer Name: Vipul Moya MD Signed: 05/17/2019 9:37 AM Workstation Name: [id number]
[2019-05-17 09:52] LABS: Basophils % (Auto) 0.3 % (0.0-1.8); Eosinophils # (Auto) 0.1 K/mm3 (0.0-0.4); Eosinophils % (Auto) 0.8 % (0.0-4.3); Hematocrit 38.8 % (35.5-45.6); Hemoglobin 13.4 gm/dl (11.8-15.2); Lymphocytes # (Auto) 0.7 K/mm3 (1.2-5.4); Lymphocytes % (Auto) 8.2 % (13.4-35.0); Mean Corpuscular HGB Conc 34 % (32-34); Mean Corpuscular Volume 85 fl (84-94); Monocytes % (Auto) 11.1 % (0.0-7.3); Red Blood Count 4.56 M/mm3 (3.65-5.03); Red Cell Distribution Width 15.2 % (13.2-15.2)
[2019-05-17 09:59] LABS: Platelet Count 98 K/mm3 (140-440)
[2019-05-17] MEDS ORDERED: cefTRIAXone/NS 2 GM/100 ML 2 GM/100 ML BAG IV ONE (10:00)
[2019-05-17 10:23] LABS: Creatine Kinase MB 3.4 ng/mL (0.0-4.0)
[2019-05-17] MEDS ORDERED: MAGNESIUM SULFATE 2 GM/50 ML BAG IV ONE (10:39)
[2019-05-17 11:23] LABS: Alanine Aminotransferase 15 units/L (7-56); Albumin 3.6 g/dL (3.9-5); BUN/Creatinine Ratio 9; Blood Urea Nitrogen 11 mg/dL (9-20); Calcium 8.1 mg/dL (8.4-10.2); Hemolysis Index 2
[2019-05-17] MEDS ORDERED: POTASSIUM CHLORIDE ER 20 MEQ TAB PO ONE (11:55)
[2019-05-17] MEDS ORDERED: POTASSIUM PHOSPHATE 15 MMOL in SODIUM CHLORIDE 0.9% 250ML 250 ML IV ONE (12:00)
[2019-05-17 12:31] LABS: Bilirubin,Urine NEG (Negative); Blood,Urine SM (Negative); Color,Urine Yellow (Yellow); Mucus,Urine FEW /HPF; Urobilinogen,Urine < 2.0 mg/dL (<2.0)
--- NOTE | 2019-05-17 14:15 | Cat Scan Report ---
CTA CHEST WITH CONTRAST INDICATION / CLINICAL INFORMATION: Chest and back pain. Sepsis. TECHNIQUE: Axial CT images were obtained through the chest after injection of 100 mL Omnipaque 350 IV contrast. 3 plane MIP and/or 3D reconstructions were produced. All CT scans at this location are performed usin g CT dose reduction for ALARA by means of automated exposure control. COMPARISON: Images from CT chest dated 09/09/13 are not immediately available. FINDINGS: Mild respiratory motion artifact obscures some distal pulmonary artery branches. PULMONARY ARTERIES: No definite pulmonary emboli. THORACIC AORTA: No significant abnormality. HEART: No significant abnormality. CORONARY ARTERIES: Moderate coronary artery calcification especially involving the LAD. MEDIASTINUM / HEMANTH: No significant abnormality. PLEURA: No pleural effusion. No pneumothorax. LUNGS: Mild interstitial pulmonary edema. No acute airspace disease. ADDITIONAL FINDINGS: None. UPPER ABDOMEN: No acute findings. SKELETAL STRUCTURES: No significant osseous abnormality. IMPRESSION: 1. No definite CT evidence for pulmonary emboli. 2. Mild interstitial pulmonary edema. No acute airspace disease. 3. Moderate coronary artery calcification in this 38-year-old patient. Signer Name: Jose G Gaspar MD Signed: 05/17/2019 2:11 PM Workstation Name: [id number]
--- NOTE | 2019-05-17 14:21 | Cat Scan Report ---
CT ABDOMEN AND PELVIS WITH CONTRAST INDICATION / CLINICAL INFORMATION: Chest and back pain. Sepsis. TECHNIQUE: Axial CT images were obtained through the abdomen and pelvis after 100 MLO Omnipaque 350 IV contrast. Study performed in conjunction with CTA chest. All CT scans at this location are performed using CT dose reduction for ALARA by means of automated exposure control. COMPARISON: None available. FINDINGS: LOWER CHEST: Mild bibasilar edema. LIVER: Liver is mildly enlarged with a prominent caudate lobe. No focal lesion. GALLBLADDER: Distended without acute abnormality. BILE DUCTS: No significant abnormality. PANCREAS: No significant abnormality. SPLEEN: Spleen is mildly enlarged measuring 15.7 cm in craniocaudad dimension. ADRENALS: No significant abnormality. RIGHT KIDNEY and URETER: No significant abnormality. LEFT KIDNEY and URETER: No significant abnormality. STOMACH and SMALL BOWEL: No significant abnormality. COLON: No significant abnormality. APPENDIX: No significant abnormality. PERITONEUM: No free fluid. No free air. No fluid collection. LYMPH NODES: No significant adenopathy. AORTA and ARTERIES: Mild atherosclerotic calcification without acute abnormality. IVC and VEINS: No significant abnormality. URINARY BLADDER: No significant abnormality. REPRODUCTIVE ORGANS: No significant abnormality. ADDITIONAL FINDINGS: None. SKELETAL SYSTEM: Right L3 and L4 transverse process fractures which appear subacute. IMPRESSION: 1. Mild hepatosplenomegaly. 2. No acute inflammatory process or bowel obstruction. 3. No urinary tract stones or hydronephrosis. 4. Right L3 and L4 transverse process fractures which appear subacute. Correlation for recent trauma is recommended. Signer Name: Jose G Gaspar MD Signed: 05/17/2019 2:17 PM Workstation Name: [id number]
[2019-05-17] MEDS ORDERED: METOPROLOL TARTRATE 5 MG/5 ML INJ IV ONE (14:29)
[2019-05-17] MEDS ORDERED: ALBUTEROL 2.5 MG/3 ML NEBU IH PRN (14:39)
[2019-05-17] MEDS ORDERED: ONDANSETRON 4 MG/2 ML INJ IV PRN (14:39)
[2019-05-17] MEDS ORDERED: ACETAMINOPHEN 325 MG TAB PO PRN (14:39)
[2019-05-17] MEDS ORDERED: NITROGLYCERIN 0.4 MG TAB SUBL SL PRN (14:39)
--- NOTE | 2019-05-17 14:42 | History and Physical Report ---
History of Present Illness Chief complaint: My chest hurts, I cant breathe, and i just feel sick. History of present illness: 38 YO Male with Obesity, HTN, DM, Systolic CHF(45%), CAD S/P Stent Placement, Cardiomyopathy S/P Pacemaker placement, CP with Right Hemiparesis presents to ED for evaluation. Pt states that he has experienced pain in his chest over the past 1 day with worsening symptoms over the past 6 hours. Pt states that his pain is 8/10, Substernal, radiates to his back, not worsened with exertion, not relieved with rest. Pt acknowledges shortness of breath, dypsnea on exertion, decreased exercise tolerance. EMS notified, and upon arrival the patient was found to be in distress, and transported to [facility]. Pt seen and evaluated in ED and found to have Angina as well as symptoms consistent with CHF Decompensation. Pt admitted to telemetry. Cardiology consulted in ED. Pt denies fever, chills, Palpitations, NVD, Trauma, BRBPR, Productive cough, Syncope, unilateral leg swelling, calf pain, prolonged travel/immobility, Individual/Family history of DVT/PE/Bleeding/Blood Clotting Disorders, or recent ill contacts. Prior admission on 11/18/17 reviewed. All listed medication reconciled at time of admission. Past History Past Medical History: diabetes, heart failure, hypertension, other (Obesity, CP) Past Surgical History: Other (pacemaker placement/removal) Social history: single. denies: smoking, alcohol abuse, prescription drug abuse Family history: diabetes, hypertension Medications and Allergies Allergies Allergy/AdvReac Type Severity Reaction Status Date / Time Penicillins Allergy Unknown Verified 06/03/14 11:23 Home Medications Medication Instructions Recorded Confirmed Last Taken Type NIFEdipine [Nifedipine ER] 90 mg PO DAILY 11/18/17 05/17/19 05/17/19 History Metoprolol [Lopressor TAB] 50 mg PO BID #60 tablet 11/20/17 05/17/19 05/17/19 Rx HYDROcodone/APAP 10-325 [[place] 1 each PO Q8HR PRN 05/17/19 05/17/19 05/17/19 History 10/325] Active Meds: Active Medications Acetaminophen (Tylenol) 650 mg PO Q4H PRN PRN Reason: Pain MILD(1-3)/Fever >100.5/DOSS Potassium Phosphate 15 mmol/ (Sodium Chloride) 255 mls @ 63 mls/hr IV ONCE ONE Stop: 05/17/19 16:02 Last Admin: 05/17/19 12:36 Dose: 63 mls/hr Documented by: Ondansetron HCl (Zofran) 4 mg IV Q8H PRN PRN Reason: Nausea And Vomiting Review of Systems Constitutional: no weight loss, no weight gain, no fever, no chills Ears, nose, mouth and throat: no ear pain, no ear discharge, no tinnitis, no decreased hearing, no nose pain, no nasal congestion Cardiovascular: chest pain, shortness of breath, dyspnea on exertion, high blood pressure, decreased exercise tolerance, no rapid/irregular heart beat, no syncope, no lightheadedness Respiratory: no cough, no cough with sputum, no excessive sputum, no hemoptysis Gastrointestinal: no nausea, no vomiting, no diarrhea Genitourinary Male: no hematuria, no flank pain, no discharge, no urinary frequency, no urinary hesitancy Rectal: no pain, no incontinence, no bleeding Musculoskeletal: no neck stiffness, no neck pain, no arm numbness/tingling, no shooting leg pain Integumentary: no rash, no pruritis, no redness, no wounds, no jaundice Neurological: no paralysis, no weakness, no parathesias, no numbness, no tingling, no seizures Psychiatric: no anxiety, no memory loss, no change in sleep habits, no sleep disturbances, no insomnia, no hypersomnia, no change in libido Endocrine: no heat intolerance, no polyphagia, no excessive thirst, no polyuria, no weight change Hematologic/Lymphatic: no easy bruising, no easy bleeding, no lymphadenopathy Allergic/Immunologic: no urticaria, no wheezing, no persistent infections, no angioedema Exam - Constitutional Vitals: Temp Pulse Resp BP Pulse Ox 98.9 F 94 H 16 166/112 94 05/17/19 11:08 05/17/19 14:12 05/17/19 14:12 05/17/19 14:12 05/17/19 14:12 General appearance: Present: mild distress, obese - EENT Eyes: Present: PERRL ENT: hearing intact, clear oral mucosa - Neck Neck: Present: supple, normal ROM - Respiratory Respiratory effort: normal Respiratory: bilateral: CTA - Cardiovascular Heart Sounds: Present: S1 & S2. Absent: rub, click - Extremities Extremities: pulses symmetrical, No edema Peripheral Pulses: within normal limits - Abdominal General gastrointestinal: Present: soft, non-tender, non-distended, normal bowel sounds Male genitourinary: Present: normal - Integumentary Integumentary: Present: clear, warm, dry - Musculoskeletal Musculoskeletal: gait normal, strength equal bilaterally - Psychiatric Psychiatric: appropriate mood/affect, intact judgment & insight - Neurologic Neurologic: CNII-XII intact, moves all extremities Results - Labs CBC & Chem 7: 05/17/19 09:25 05/17/19 09:25 Labs: Abnormal lab results 05/17/19 05/17/19 05/17/19 Range/Units 09:25 09:25 09:25 Plt Count 98 L (140-440) K/mm3 Lymph % (Auto) 8.2 L (13.4-35.0) % [place] % (Auto) 11.1 H (0.0-7.3) % Lymph # 0.7 L (1.2-5.4) K/mm3 [place] # 1.0 H (0.0-0.8) K/mm3 Seg Neutrophils % 79.6 H (40.0-70.0) % D-Dimer 567.19 H (0-234) ng/mlDDU Potassium (3.6-5.0) mmol/L Chloride (98-107) mmol/L Glucose (75-100) mg/dL Calcium (8.4-10.2) mg/dL Phosphorus (2.5-4.5) mg/dL Magnesium (1.7-2.3) mg/dL Troponin T 0.099 H (0.00-0.029) ng/mL Total Protein (6.3-8.2) g/dL Albumin (3.9-5) g/dL 05/17/19 05/17/19 Range/Units 09:25 09:25 Plt Count (140-440) K/mm3 Lymph % (Auto) (13.4-35.0) % [place] % (Auto) (0.0-7.3) % Lymph # (1.2-5.4) K/mm3 [place] # (0.0-0.8) K/mm3 Seg Neutrophils % (40.0-70.0) % D-Dimer (0-234) ng/mlDDU Potassium 3.2 L (3.6-5.0) mmol/L Chloride 108.2 H (98-107) mmol/L Glucose 201 H (75-100) mg/dL Calcium 8.1 L (8.4-10.2) mg/dL Phosphorus 2.00 L (2.5-4.5) mg/dL Magnesium 1.40 L (1.7-2.3) mg/dL Troponin T (0.00-0.029) ng/mL Total Protein 6.2 L (6.3-8.2) g/dL Albumin 3.6 L (3.9-5) g/dL Assessment and Plan - Patient Problems (1) CHF (congestive heart failure) Current Visit: Yes Status: Acute Qualifiers: Heart failure chronicity: acute on chronic Plan to address problem: Admit to telemetry, strict I/O, daily weight, bnp, pulse oximetry, chest x ray, monitor uop q shift, thyroid panel, supplemental oxygen. (2) Diabetes Current Visit: Yes Status: Acute Plan to address problem: ADA diet, insulin, accu check, hypoglycemia protocol (3) Cerebral palsy Current Visit: Yes Status: Acute Qualifiers: Cerebral palsy type: unspecified type Qualified Code(s): G80.9 - Cerebral palsy, unspecified Plan to address problem: Supportive care, fall precautions. (4) Obesity hypoventilation syndrome Current Visit: Yes Status: Acute Plan to address problem: Supplemental oxygen, nebulizer therapy, NIPPV as clinically indicated, pulse oximetry, chest x ray (5) CAD (coronary artery disease) Current Visit: Yes Status: Acute Qualifiers: Coronary Disease-Associated Artery/Lesion type: unspecified vessel or lesion type [place] vs. transplanted heart: [place] heart Associated angina: with stable angina Qualified Code(s): I25.118 - Atherosclerotic heart disease of [place] coronary artery with other forms of angina pectoris Plan to address problem: lowfat, low cholesterol diet, statin therapy, lipid panel (6) Essential hypertension Current Visit: Yes Status: Acute Plan to address problem: Monitor BP q shift, continue medical management (7) DVT prophylaxis Current Visit: Yes Status: Acute Plan to address problem: SCD to BLE while in bed, prophylactic lovenox
[2019-05-17] MEDS: HYDROcodone/ACETAMINOPHEN 10-325MG TAB PO PRN ×2 (14:48→17:48)
[2019-05-17] MEDS ORDERED: HYDROcodone/ACETAMINOPHEN 5-325 MG TAB ONE (14:48)
--- NOTE | 2019-05-17 16:55 | Consultation ---
History of Present Illness Consult date: 05/17/19 Consult reason: chest pain History of present illness: Patient's a 38-year-old man with coronary artery disease. A year and a half ago, cardiac catheterization demonstrated a chronic total occlusion of the diagonal branch of the LAD. He was placed on medical therapy for chronic stable angina. He presents to the hospital with chest pain, EKG was sinus rhythm with changes of an old anteroseptal myocardial infarction, but no acute ischemic c hanges. Serial enzyme measurements were negative. Past History Past Medical History: CAD, hypertension, other (obesity) Medications and Allergies Allergies Allergy/AdvReac Type Severity Reaction Status Date / Time Penicillins Allergy Unknown Verified 06/03/14 11:23 Home Medications Medication Instructions Recorded Confirmed Last Taken Type NIFEdipine [Nifedipine ER] 90 mg PO DAILY 11/18/17 05/17/19 05/17/19 History Metoprolol [Lopressor TAB] 50 mg PO BID #60 tablet 11/20/17 05/17/19 05/17/19 Rx HYDROcodone/APAP 10-325 [[place] 1 each PO Q8HR PRN 05/17/19 05/17/19 05/17/19 History 10/325] Furosemide [Lasix TAB] 40 mg PO QDAY 05/18/19 05/18/19 Unknown History Gabapentin [Neurontin] 600 mg PO QDAY 05/18/19 05/18/19 Unknown History Glimepiride [Amaryl] 4 mg PO QDAY 05/18/19 05/18/19 Unknown History Lisinopril [Zestril] 5 mg PO QDAY 05/18/19 05/18/19 Unknown History Pantoprazole [Protonix] 40 mg PO QDAY 05/18/19 05/18/19 Unknown History Potassium Chloride [K-Dur] 20 meq PO QDAY 05/18/19 05/18/19 Unknown History metFORMIN [Glucophage] 500 mg PO BID 05/18/19 05/18/19 Unknown History Active Meds: Active Medications Acetaminophen (Tylenol) 650 mg PO Q4H PRN PRN Reason: Pain MILD(1-3)/Fever >100.5/DOSS Acetaminophen/Hydrocodone Bitart ([place] 10/325) 1 each PO Q8HR PRN PRN Reason: PAIN Last Admin: 05/17/19 14:48 Dose: 1 each Documented by: Albuterol (Proventil) 2.5 mg IH Q4HRT PRN PRN Reason: Shortness Of Breath Metoprolol Tartrate (Lopressor) 50 mg PO BID [place] Nifedipine (Procardia Xl) 90 mg PO QDAY [place] Nitroglycerin (Nitrostat) 0.4 mg SL .Q5MIN PRN PRN Reason: Chest Pain Ondansetron HCl (Zofran) 4 mg IV Q8H PRN PRN Reason: Nausea And Vomiting Sodium Chloride (Sodium Chloride Flush Syringe 10 Ml) 10 ml IV BID [place] Sodium Chloride (Sodium Chloride Flush Syringe 10 Ml) 10 ml IV PRN PRN PRN Reason: LINE FLUSH Review of Systems Cardiovascular: chest pain, shortness of breath, no orthopnea, no palpitations, no rapid/irregular heart beat, no edema, no syncope, no lightheadedness Physical Examination Vital Signs Temp Pulse Resp BP Pulse Ox 100.4 F H 110 H 18 199/129 94 05/17/19 08:45 05/17/19 08:45 05/17/19 08:45 05/17/19 08:45 05/17/19 08:45 General appearance: no acute distress HEENT: Positive: PERRL Neck: Positive: neck supple Cardiac: Positive: Reg Rate and Rhythm Neuro: Positive: Grossly Intact Abdomen: Positive: Soft Male genitourinary: Positive: deferred Skin: Positive: Clear Extremities: Absent: edema Results 05/17/19 09:25 05/17/19 09:25 Cardiac Enzymes 05/17/19 05/17/19 Range/Units 09:25 09:25 AST 15 (5-40) units/L CK-MB (CK-2) 3.4 (0.0-4.0) ng/mL CBC 05/17/19 Range/Units 09:25 WBC 8.7 (4.5-11.0) K/mm3 RBC 4.56 (3.65-5.03) M/mm3 Hgb 13.4 (11.8-15.2) gm/dl Hct 38.8 (35.5-45.6) % Plt Count 98 L (140-440) K/mm3 Lymph # 0.7 L (1.2-5.4) K/mm3 [place] # 1.0 H (0.0-0.8) K/mm3 Eos # 0.1 (0.0-0.4) K/mm3 Baso # 0.0 (0.0-0.1) K/mm3 Comprehensive Metabolic Panel 05/17/19 Range/Units 09:25 Sodium 145 (137-145) mmol/L Potassium 3.2 L (3.6-5.0) mmol/L Chloride 108.2 H (98-107) mmol/L Carbon Dioxide 24 (22-30) mmol/L BUN 11 (9-20) mg/dL Creatinine 1.2 (0.8-1.5) mg/dL Glucose 201 H (75-100) mg/dL Calcium 8.1 L (8.4-10.2) mg/dL AST 15 (5-40) units/L ALT 15 (7-56) units/L Alkaline Phosphatase 81 (35-129) units/L Total Protein 6.2 L (6.3-8.2) g/dL Albumin 3.6 L (3.9-5) g/dL EKG interpretations - Telemetry EKG Rhythm: Sinus Rhythm Assessment and Plan - Patient Problems (1) Chronic stable angina Current Visit: Yes Status: Acute Plan to address problem: We will optimize medical therapy for chronic stable angina due to chronic total occlusion of side branch and other small vessel disease.
[2019-05-17 16:57] LABS: Chol/HDL Ratio 5.1 %
[2019-05-17] MEDS: ENOXAPARIN 40 MG/0.4 ML INJ SUB-Q SCH (21:18)
[2019-05-17] MEDS: METOPROLOL TARTRATE 50 MG TAB PO SCH (21:18)
[2019-05-18] MEDS: HYDROcodone/ACETAMINOPHEN 10-325MG TAB PO PRN ×3 (00:36→16:41)
[2019-05-18] MEDS ORDERED: POTASSIUM CHLORIDE ER 20 MEQ TAB PO NR (08:25)
[2019-05-18] MEDS: METOPROLOL TARTRATE 50 MG TAB PO SCH ×2 (09:11→21:45)
[2019-05-18] MEDS: NIFEdipine XL 90 MG TAB PO SCH (09:12)
--- NOTE | 2019-05-18 11:05 | Progress Note ---
Assessment and Plan Chest pain Shortness of breath Hx of CAD [facility] 11/2017: 100% occluded diagonal branch, LVEF 45-50%. Medical therapy recommended. Hx of Cerebral Palsy Presence of Pacemaker ([employer]) Hypertension Diabetes Obesity Subjective Date of service: 05/18/19 Interval history: Patient reports chest pain and shortness of breath on exertion Objective Vital Signs Temp Pulse Resp BP BP Pulse Ox 05/18/19 09:11 88 154/97 05/18/19 08:30 17 05/18/19 08:20 95 05/18/19 07:48 98.8 F 88 18 154/97 94 05/18/19 04:37 98.4 F 86 18 162/104 94 05/18/19 00:15 98.3 F 74 18 163/108 94 05/17/19 21:18 94 H 165/100 05/17/19 20:05 98.4 F 89 18 160/106 94 05/17/19 15:48 99.0 F 94 H 18 165/100 93 05/17/19 14:48 93 H 16 150/99 94 05/17/19 14:44 95 H 166/106 05/17/19 14:12 94 H 16 166/112 94 05/17/19 12:17 95 H 14 133/84 100 05/17/19 11:47 98 H 16 159/102 99 05/17/19 11:08 98.9 F 93 H 16 94 - Physical Examination General: No Apparent Distress HEENT: Positive: PERRL Neck: Positive: trachea midline Cardiac: Positive: Reg Rate and Rhythm Lungs: Positive: Decreased Breath Sounds Neuro: Positive: Grossly Intact - Labs and Meds Cardiac Enzymes 05/17/19 Range/Units 09:25 AST 15 (5-40) units/L Lipids 05/17/19 Range/Units 14:38 Triglycerides 222 H (2-149) mg/dL Cholesterol 153 (50-199) mg/dL HDL Cholesterol 30 L (40-59) mg/dL Cholesterol/HDL Ratio 5.10 % Comprehensive Metabolic Panel 05/17/19 Range/Units 09:25 Sodium 145 (137-145) mmol/L Potassium 3.2 L (3.6-5.0) mmol/L Chloride 108.2 H (98-107) mmol/L Carbon Dioxide 24 (22-30) mmol/L BUN 11 (9-20) mg/dL Creatinine 1.2 (0.8-1.5) mg/dL Glucose 201 H (75-100) mg/dL Calcium 8.1 L (8.4-10.2) mg/dL AST 15 (5-40) units/L ALT 15 (7-56) units/L Alkaline Phosphatase 81 (35-129) units/L Total Protein 6.2 L (6.3-8.2) g/dL Albumin 3.6 L (3.9-5) g/dL
--- NOTE | 2019-05-18 16:38 | Progress Note ---
Assessment and Plan Assessment and plan: Patient is a 38 yo man with a history of cerebral palsy, Obesity, HTN, DM type 2, Systolic CHF(45%), CAD S/P Stent Placement, Cardiomyopathy S/P Pacemaker placement and CP with Right Hemiparesis (walks with a device occassionally) who presented to [facility] ED with chest pains and SOB. He was found to have Angina as well as symptoms consistent with CHF Decompensation. Pt admitted to telemetry. Cardiology consulted in ED. * CTA chest reports no PE, +pulmonary edema, CAD * CT abd/pelvis with contrast reports mild hepatosplenomegaly, no acute inflammatory process, right L3, L4 transverse process fractures which appear subacute, correlation for recent trauma is recommended (1) Acute on chronic systolic CHF (congestive heart failure) Current Visit: Yes Status: Acute Qualifiers: Heart failure chronicity: acute on chronic Plan to address problem: Admit to telemetry, strict I/O, daily weight, bnp, pulse oximetry, chest x ray, monitor uop q shift, thyroid panel, supplemental oxygen. (2) Diabetes Current Visit: Yes Status: Acute Plan to address problem: ADA diet, insulin, accu check, hypoglycemia protocol (3) Cerebral palsy Current Visit: Yes Status: Acute Qualifiers: Cerebral palsy type: unspecified type Qualified Code(s): G80.9 - Cerebral palsy, unspecified Plan to address problem: Supportive care, fall precautions. (4) Obesity hypoventilation syndrome Current Visit: Yes Status: Acute Plan to address problem: Supplemental oxygen, nebulizer therapy, NIPPV as clinically indicated, pulse oximetry, chest x ray (5) CAD (coronary artery disease) Current Visit: Yes Status: Acute Qualifiers: Coronary Disease-Associated Artery/Lesion type: unspecified vessel or lesion type [place] vs. transplanted heart: [place] heart Associated angina: with stable angina Qualified Code(s): I25.118 - Atherosclerotic heart disease of [place] coronary artery with other forms of angina pectoris Plan to address problem: lowfat, low cholesterol diet, statin therapy, lipid panel (6) Essential hypertension Current Visit: Yes Status: Acute Plan to address problem: Monitor BP q shift, continue medical management (7) DVT prophylaxis Current Visit: Yes Status: Acute Plan to address problem: SCD to BLE while in bed, prophylactic lovenox History Interval history: Patient was seen and examined. Follow-up on current diagnosis of CHF. No overnight events reported to me. Patient denies any chest pain, shortness breath, nausea/vomiting or severe headaches. Imaging, nursing note, chart, labs and old chart reviewed. Discussed with patient. Hospitalist Physical - Physical exam Narrative exam: Gen: WDWN, NAD, Awake, Alert, Orientated HEENT: NCAT, EOMI, PERRL, OP Clear Neck: supple, no adenopathy, no thyromegaly, no JVD CVS/Heart: RRR, normal S1S2, pulses present bilaterally Chest/Lungs: CTA B, Symmetrical chest expansion, good air entry bilaterally, totally reproducible severe upper chest wall tenderness, he jumps with slightest touch GI/Abdomen: soft, NTND, good bowel sounds, no guarding or rebound /Bladder: no suprapubic tenderness, no CVA or paraspinal tenderness Extermity/Skin: no c/c/e, no obvious rash, left 3 toe ulcer between 3-4 toes, dime size ulceration MSK: FROM x 4 Neuro: CN 2-12 grossly intact, no new focal deficits Psych: calm - Constitutional Vitals: Temp Pulse Resp BP Pulse Ox 98.8 F 91 H 14 154/97 96 05/18/19 07:48 05/18/19 14:31 05/18/19 14:31 05/18/19 09:11 05/18/19 14:31 General appearance: Present: no acute distress Results - Labs CBC & Chem 7: 05/17/19 09:25 10 09:25 Labs: Laboratory Last Values WBC 8.7 K/mm3 (4.5-11.0) 05/17/19 09:25 RBC 4.56 M/mm3 (3.65-5.03) 05/17/19 09:25 Hgb 13.4 gm/dl (11.8-15.2) 05/17/19 09:25 Hct 38.8 % (35.5-45.6) 05/17/19 09:25 MCV 85 fl (84-94) 05/17/19 09:25 MCH 29 pg (28-32) 05/17/19 09:25 MCHC 34 % (32-34) 05/17/19 09:25 RDW 15.2 % (13.2-15.2) 05/17/19 09:25 Plt Count 98 K/mm3 (140-440) L 05/17/19 09:25 Lymph % (Auto) 8.2 % (13.4-35.0) L 05/17/19 09:25 [place] % (Auto) 11.1 % (0.0-7.3) H 05/17/19 09:25 Eos % (Auto) 0.8 % (0.0-4.3) 05/17/19 09:25 Baso % (Auto) 0.3 % (0.0-1.8) 05/17/19 09:25 Lymph # 0.7 K/mm3 (1.2-5.4) L 05/17/19 09:25 [place] # 1.0 K/mm3 (0.0-0.8) H 05/17/19 09:25 Eos # 0.1 K/mm3 (0.0-0.4) 05/17/19 09:25 Baso # 0.0 K/mm3 (0.0-0.1) 05/17/19 09:25 Seg Neutrophils % 79.6 % (40.0-70.0) H 05/17/19 09:25 Seg Neutrophils # 7.0 K/mm3 (1.8-7.7) 05/17/19 09:25 D-Dimer 567.19 ng/mlDDU (0-234) H 05/17/19 09:25 Sodium 145 mmol/L (137-145) 05/17/19 09:25 Potassium 3.2 mmol/L (3.6-5.0) L 05/17/19 09:25 Chloride 108.2 mmol/L (98-107) H 05/17/19 09:25 Carbon Dioxide 24 mmol/L (22-30) 05/17/19 09:25 Anion Gap 16 mmol/L 05/17/19 09:25 BUN 11 mg/dL (9-20) 05/17/19 09:25 Creatinine 1.2 mg/dL (0.8-1.5) 05/17/19 09:25 Estimated GFR > 60 ml/min 05/17/19 09:25 BUN/Creatinine Ratio 9 % 05/17/19 09:25 Glucose 201 mg/dL (75-100) H 05/17/19 09:25 Lactic Acid 1.20 mmol/L (0.7-2.0) 05/17/19 13:01 Calcium 8.1 mg/dL (8.4-10.2) L 05/17/19 09:25 Phosphorus 2.00 mg/dL (2.5-4.5) L 05/17/19 09:25 Magnesium 1.40 mg/dL (1.7-2.3) L 05/17/19 09:25 Total Bilirubin 0.60 mg/dL (0.1-1.2) 05/17/19 09:25 AST 15 units/L (5-40) 05/17/19 09:25 ALT 15 units/L (7-56) 05/17/19 09:25 Alkaline Phosphatase 81 units/L (35-129) 05/17/19 09:25 Total Creatine Kinase 127 units/L (55-170) 05/17/19 09:25 CK-MB (CK-2) 3.4 ng/mL (0.0-4.0) 05/17/19 09:25 CK-MB (CK-2) Rel Index 2.6 (0-4) 05/17/19 09:25 Troponin T 0.069 ng/mL (0.00-0.029) H D 05/17/19 14:38 NT-Pro-B Natriuret Pep 3281 pg/mL (0-450) H 05/17/19 14:45 Total Protein 6.2 g/dL (6.3-8.2) L 05/17/19 09:25 Albumin 3.6 g/dL (3.9-5) L 05/17/19 09:25 Albumin/Globulin Ratio 1.4 % 05/17/19 09:25 Triglycerides 222 mg/dL (2-149) H 05/17/19 14:38 Cholesterol 153 mg/dL (50-199) 05/17/19 14:38 LDL Cholesterol Direct 98 mg/dL (50-130) 05/17/19 14:38 HDL Cholesterol 30 mg/dL (40-59) L 05/17/19 14:38 Cholesterol/HDL Ratio 5.10 % 05/17/19 14:38 Urine Color Yellow (Yellow) 05/17/19 11:27 Urine Turbidity Clear (Clear) 05/17/19 11:27 Urine pH 5.0 (5.0-7.0) 05/17/19 11:27 Ur Specific [place] 1.010 (1.003-1.030) 05/17/19 11:27 Urine Protein 100 mg/dl mg/dL (Negative) 05/17/19 11:27 Urine Glucose (UA) Neg mg/dL (Negative) 05/17/19 11:27 Urine Ketones Neg mg/dL (Negative) 05/17/19 11:27 Urine Blood Sm (Negative) 05/17/19 11:27 Urine Nitrite Neg (Negative) 05/17/19 11:27 Urine Bilirubin Neg (Negative) 05/17/19 11:27 Urine Urobilinogen < 2.0 mg/dL (<2.0) 05/17/19 11:27 Ur Leukocyte Esterase Neg (Negative) 05/17/19 11:27 Urine WBC (Auto) 1.0 /HPF (0.0-6.0) 05/17/19 11:27 Urine RBC (Auto) 1.0 /HPF (0.0-6.0) 05/17/19 11:27 Urine Mucus Few /HPF 05/17/19 11:27 Active Medications - Current Medications Current Medications: Generic Name Dose Route Start Last Admin Trade Name Freq PRN Reason Stop Dose Admin Acetaminophen 650 mg 05/17/19 14:39 Tylenol PO Q4H PRN Pain MILD(1-3)/Fever >100.5/DOSS Acetaminophen/Hydrocodone Bitart 1 each 05/17/19 14:41 05/18/19 08:30 [place] 10/325 PO 1 each Q8HR PRN Administration PAIN Albuterol 2.5 mg 05/17/19 14:39 Proventil IH Q4HRT PRN Shortness Of Breath Enoxaparin Sodium 40 mg 05/17/19 22:00 05/17/19 21:18 Lovenox SUB-Q 40 mg QDAY@2200 HALIMA Administration Furosemide 40 mg 05/19/19 10:00 Lasix PO QDAY HALIMA Gabapentin 600 mg 05/19/19 10:00 Neurontin PO QDAY HALIMA Lisinopril 5 mg 05/19/19 10:00 Zestril PO QDAY HALIMA Metoprolol Tartrate 50 mg 05/17/19 22:00 05/18/19 09:11 Lopressor PO 50 mg BID HALIMA Administration Nifedipine 90 mg 05/18/19 10:00 05/18/19 09:12 Procardia Xl PO 90 mg QDAY HALIMA Administration Nitroglycerin 0.4 mg 05/17/19 14:39 Nitrostat SL .Q5MIN PRN Chest Pain Ondansetron HCl 4 mg 05/17/19 14:39 Zofran IV Q8H PRN Nausea And Vomiting Pantoprazole Sodium 40 mg 05/19/19 10:00 Protonix PO QDAY HALIMA Potassium Chloride 20 meq 05/19/19 10:00 K-Dur PO QDAY HALIMA Ranolazine 1,000 mg 05/18/19 22:00 Ranexa Er PO BID HALIMA Sodium Chloride 10 ml 05/17/19 22:00 05/18/19 09:12 Sodium Chloride Flush Syringe 10 Ml IV 10 ml BID HALIMA Administration Sodium Chloride 10 ml 05/17/19 14:39 Sodium Chloride Flush Syringe 10 Ml IV PRN PRN LINE FLUSH
[2019-05-18] MEDS: RANOLAZINE ER 500 MG TAB 12HR PO SCH (21:45)
[2019-05-18] MEDS: ENOXAPARIN 40 MG/0.4 ML INJ SUB-Q SCH (21:45)
[2019-05-19] MEDS: HYDROcodone/ACETAMINOPHEN 10-325MG TAB PO PRN ×3 (01:20→17:25)
--- NOTE | 2019-05-19 09:08 | Progress Note ---
<MARGARETH LAN - Last Filed: 05/19/19 10:22> Assessment and Plan Chest pain, musculoskeletal Shortness of breath Hx of CAD [facility] 11/2017: 100% occluded diagonal branch, LVEF 45-50%. Medical therapy recommended. Hx of Cerebral Palsy s/p Pacemaker lead extraction in 2015 at [place] who later determined the patient no longer needed a PM Hypertension Diabetes Obesity Sleep apnea Continue medical therapy for underlying coronary artery disease. Subjective Date of service: 05/19/19 Interval history: Patient reports chest pain following coughs. Objective Vital Signs Temp Pulse Pulse Pulse Resp Resp BP 05/19/19 07:18 98.1 F 18 143/93 05/19/19 04:30 97.9 F 90 16 137/97 05/19/19 02:20 18 05/19/19 02:00 18 05/19/19 01:20 18 05/19/19 00:15 98.3 F 89 20 143/96 05/18/19 21:45 121 H 124/83 05/18/19 20:42 109 H 18 05/18/19 19:41 121 H 05/18/19 19:23 98.5 F 106 H 16 124/83 05/18/19 19:12 106 H 05/18/19 17:41 18 05/18/19 16:45 149/98 05/18/19 16:41 17 05/18/19 14:31 91 H 14 05/18/19 11:49 98.0 F 80 18 153/105 05/18/19 09:30 151 H 05/18/19 09:11 88 154/97 Pulse Ox 05/19/19 07:18 05/19/19 04:30 95 05/19/19 02:20 05/19/19 02:00 05/19/19 01:20 05/19/19 00:15 95 05/18/19 21:45 05/18/19 20:42 93 05/18/19 19:41 05/18/19 19:23 93 05/18/19 19:12 05/18/19 17:41 05/18/19 16:45 05/18/19 16:41 05/18/19 14:31 96 05/18/19 11:49 81 L 05/18/19 09:30 05/18/19 09:11 - Physical Examination General: No Apparent Distress HEENT: Positive: PERRL Neck: Positive: trachea midline Cardiac: Positive: Reg Rate and Rhythm Lungs: Positive: Decreased Breath Sounds Neuro: Positive: Grossly Intact Extremities: Absent: edema <LASHAMERLENE - Last Filed: 05/19/19 21:01> Assessment and Plan I have seen and evaluated the patient and agree with the assessment and plan. The patient presents with musculoskeletal chest pain, CAD [facility] 11/2017: 100% occluded diagonal branch, LVEF 45-50%, Cerebral Palsy, s/p Pacemaker lead extraction in 2015 at [place] who later determined the patient no longer needed a PM, Hypertension, Diabetes, Sleep apnea. Recommend continue medical therapy for treatment of coronary artery disease. Objective Vital Signs Temp Pulse Resp Resp BP Pulse Ox 05/19/19 12:32 88 124/92 05/19/19 10:00 92 H 97 05/19/19 09:19 102 H 143/93 05/19/19 09:18 102 H 143/93 05/19/19 07:18 98.1 F 18 143/93 05/19/19 04:30 97.9 F 90 16 137/97 95 05/19/19 02:20 18 05/19/19 02:00 18 05/19/19 01:20 18 05/19/19 00:15 98.3 F 89 20 143/96 95 05/18/19 21:45 121 H 124/83
[2019-05-19] MEDS: RANOLAZINE ER 500 MG TAB 12HR PO SCH ×2 (09:17→22:31)
[2019-05-19] MEDS: FUROSEMIDE 40 MG TAB PO SCH (09:17)
[2019-05-19] MEDS: PANTOPRAZOLE 40 MG TAB PO SCH (09:18)
[2019-05-19] MEDS: METOPROLOL TARTRATE 50 MG TAB PO SCH ×2 (09:18→22:36)
[2019-05-19] MEDS: POTASSIUM CHLORIDE ER 20 MEQ TAB PO SCH (09:18)
[2019-05-19] MEDS: NIFEdipine XL 90 MG TAB PO SCH (09:18)
[2019-05-19] MEDS: GABAPENTIN 300 MG CAP PO SCH (09:18)
[2019-05-19] MEDS: LISINOPRIL 5 MG TAB PO SCH (09:19)
[2019-05-19] MEDS: ASPIRIN 81 MG TAB CHEW PO SCH (09:36)
[2019-05-19] MEDS ORDERED: ASPIRIN 325 MG TAB PO SCH (10:00)
--- NOTE | 2019-05-19 17:02 | Progress Note ---
Assessment and Plan Assessment and plan: Patient is a 38 yo man with a history of cerebral palsy, Obesity, HTN, DM type 2, Systolic CHF(45%), CAD S/P Stent Placement, Cardiomyopathy S/P Pacemaker placement and CP with Right Hemiparesis (walks with a device occassionally) who presented to [facility] ED with chest pains and SOB. He was found to have Angina as well as symptoms consistent with CHF Decompensation. Pt admitted to telemetry. Cardiology consulted in ED. * CTA chest reports no PE, +pulmonary edema, CAD * CT abd/pelvis with contrast reports mild hepatosplenomegaly, no acute inflammatory process, right L3, L4 transverse process fractures which appear subacute, correlation for recent trauma is recommended Chest pains, that is on-going, Ranexa increase yesterday but he is still having chest pains Acute hypoxic respiratory failure, pulse ox 81% on RA: I have asked the nurse re-check O2 stats with 6 minute walk Acute on chronic systolic CHF (congestive heart failure) Admit to telemetry, strict I/O, daily weight, bnp, pulse oximetry, chest x ray, monitor uop q shift, thyroid panel, supplemental oxygen. Diabetes mellitus type 2 on Insulin, uncontrolled hyperglycemia: ADA diet, insulin, accu check, hypoglycemia protocol Cerebral palsy with right side contractures: supportive care, fall precautions. Obesity hypoventilation syndrome, suspected CATHERINE: Supplemental oxygen, nebulizer therapy, NIPPV as clinically indicated, pulse oximetry, Advised for outpatient sleep study H/O CAD (coronary artery disease): medical management, low salt, low cholesterol diet, statin therapy, lipid panel Essential hypertension: Monitor BP q shift, continue medical management DVT prophylaxis SCD to BLE while in bed, prophylactic lovenox Disposition: continue inpatient care, try to wean off O2 and once chest pain free. History Interval history: Patient was seen and examined. Follow-up on current diagnosis of CHF. No overnight events reported to me. Patient denies any nausea/vomiting or severe headaches. Imaging, nursing note, chart, labs and old chart reviewed. Discussed with patient. He still having chest pains with SOB. His pulse ox dropped to 81% on 05/18/2019 and he was placed on 2l O2. He has a short thick neck and was told by his father that he snores very loudly, suspect for CATHERINE, advised outpatient sleep study. Hospitalist Physical - Physical exam Narrative exam: Gen: WDWN, NAD, Awake, Alert, Orientated HEENT: NCAT, EOMI, PERRL, OP Clear Neck: supple, no adenopathy, no thyromegaly, no JVD CVS/Heart: RRR, normal S1S2, pulses present bilaterally Chest/Lungs: CTA B, Symmetrical chest expansion, good air entry bilaterally, totally reproducible severe upper chest wall tenderness, he jumps with slightest touch GI/Abdomen: soft, NTND, good bowel sounds, no guarding or rebound /Bladder: no suprapubic tenderness, no CVA or paraspinal tenderness Extermity/Skin: no c/c/e, no obvious rash, left 3 toe ulcer between 3-4 toes, d cheryl size ulceration MSK: FROM x 4 Neuro: CN 2-12 grossly intact, no new focal deficits Psych: calm - Constitutional Vitals: Temp Pulse Resp BP Pulse Ox 98.1 F 88 18 124/92 97 05/19/19 07:18 05/19/19 12:32 05/19/19 07:18 05/19/19 12:32 05/19/19 10:00 General appearance: Present: no acute distress Results - Labs CBC & Chem 7: 05/17/19 09:25 05/17/19 09:25 Labs: Laboratory Last Values WBC 8.7 K/mm3 (4.5-11.0) 05/17/19 09:25 RBC 4.56 M/mm3 (3.65-5.03) 05/17/19 09:25 Hgb 13.4 gm/dl (11.8-15.2) 05/17/19 09:25 Hct 38.8 % (35.5-45.6) 05/17/19 09:25 MCV 85 fl (84-94) 05/17/19 09:25 MCH 29 pg (28-32) 05/17/19 09:25 MCHC 34 % (32-34) 05/17/19 09:25 RDW 15.2 % (13.2-15.2) 05/17/19 09:25 Plt Count 98 K/mm3 (140-440) L 05/17/19 09:25 Lymph % (Auto) 8.2 % (13.4-35.0) L 05/17/19 09:25 [place] % (Auto) 11.1 % (0.0-7.3) H 05/17/19 09:25 Eos % (Auto) 0.8 % (0.0-4.3) 05/17/19 09:25 Baso % (Auto) 0.3 % (0.0-1.8) 05/17/19 09:25 Lymph # 0.7 K/mm3 (1.2-5.4) L 05/17/19 09:25 [place] # 1.0 K/mm3 (0.0-0.8) H 05/17/19 09:25 Eos # 0.1 K/mm3 (0.0-0.4) 05/17/19 09:25 Baso # 0.0 K/mm3 (0.0-0.1) 05/17/19 09:25 Seg Neutrophils % 79.6 % (40.0-70.0) H 05/17/19 09:25 Seg Neutrophils # 7.0 K/mm3 (1.8-7.7) 05/17/19 09:25 D-Dimer 567.19 ng/mlDDU (0-234) H 05/17/19 09:25 Sodium 145 mmol/L (137-145) 05/17/19 09:25 Potassium 3.2 mmol/L (3.6-5.0) L 05/17/19 09:25 Chloride 108.2 mmol/L (98-107) H 05/17/19 09:25 Carbon Dioxide 24 mmol/L (22-30) 05/17/19 09:25 Anion Gap 16 mmol/L 05/17/19 09:25 BUN 11 mg/dL (9-20) 05/17/19 09:25 Creatinine 1.2 mg/dL (0.8-1.5) 05/17/19 09:25 Estimated GFR > 60 ml/min 05/17/19 09:25 BUN/Creatinine Ratio 9 % 05/17/19 09:25 Glucose 201 mg/dL (75-100) H 05/17/19 09:25 Lactic Acid 1.20 mmol/L (0.7-2.0) 05/17/19 13:01 Calcium 8.1 mg/dL (8.4-10.2) L 05/17/19 09:25 Phosphorus 2.00 mg/dL (2.5-4.5) L 05/17/19 09:25 Magnesium 1.40 mg/dL (1.7-2.3) L 05/17/19 09:25 Total Bilirubin 0.60 mg/dL (0.1-1.2) 05/17/19 09:25 AST 15 units/L (5-40) 05/17/19 09:25 ALT 15 units/L (7-56) 05/17/19 09:25 Alkaline Phosphatase 81 units/L (35-129) 05/17/19 09:25 Total Creatine Kinase 127 units/L (55-170) 05/17/19 09:25 CK-MB (CK-2) 3.4 ng/mL (0.0-4.0) 05/17/19 09:25 CK-MB (CK-2) Rel Index 2.6 (0-4) 05/17/19 09:25 Troponin T 0.069 ng/mL (0.00-0.029) H D 05/17/19 14:38 NT-Pro-B Natriuret Pep 3281 pg/mL (0-450) H 05/17/19 14:45 Total Protein 6.2 g/dL (6.3-8.2) L 05/17/19 09:25 Albumin 3.6 g/dL (3.9-5) L 05/17/19 09:25 Albumin/Globulin Ratio 1.4 % 05/17/19 09:25 Triglycerides 222 mg/dL (2-149) H 05/17/19 14:38 Cholesterol 153 mg/dL (50-199) 05/17/19 14:38 LDL Cholesterol Direct 98 mg/dL (50-130) 05/17/19 14:38 HDL Cholesterol 30 mg/dL (40-59) L 05/17/19 14:38 Cholesterol/HDL Ratio 5.10 % 05/17/19 14:38 Urine Color Yellow (Yellow) 05/17/19 11:27 Urine Turbidity Clear (Clear) 05/17/19 11:27 Urine pH 5.0 (5.0-7.0) 05/17/19 11:27 Ur Specific [place] 1.010 (1.003-1.030) 05/17/19 11:27 Urine Protein 100 mg/dl mg/dL (Negative) 05/17/19 11:27 Urine Glucose (UA) Neg mg/dL (Negative) 05/17/19 11:27 Urine Ketones Neg mg/dL (Negative) 05/17/19 11:27 Urine Blood Sm (Negative) 05/17/19 11:27 Urine Nitrite Neg (Negative) 05/17/19 11:27 Urine Bilirubin Neg (Negative) 05/17/19 11:27 Urine Urobilinogen < 2.0 mg/dL (<2.0) 05/17/19 11:27 Ur Leukocyte Esterase Neg (Negative) 05/17/19 11:27 Urine WBC (Auto) 1.0 /HPF (0.0-6.0) 05/17/19 11:27 Urine RBC (Auto) 1.0 /HPF (0.0-6.0) 05/17/19 11:27 Urine Mucus Few /HPF 05/17/19 11:27 Active Medications - Current Medications Current Medications: Generic Name Dose Route Start Last Admin Trade Name Freq PRN Reason Stop Dose Admin Acetaminophen 650 mg 05/17/19 14:39 Tylenol PO Q4H PRN Pain MILD(1-3)/Fever >100.5/DOSS Acetaminophen/Hydrocodone Bitart 1 each 05/17/19 14:41 05/19/19 09:28 [place] 10/325 PO 1 each Q8HR PRN Administration PAIN Albuterol 2.5 mg 05/17/19 14:39 Proventil IH Q4HRT PRN Shortness Of Breath Aspirin 81 mg 05/19/19 10:00 05/19/19 09:36 Baby Aspirin PO 81 mg QDAY HALIMA Administration Atorvastatin Calcium 40 mg 05/19/19 22:00 Lipitor PO QHS HALIMA Enoxaparin Sodium 40 mg 05/17/19 22:00 05/18/19 21:45 Lovenox SUB-Q 40 mg QDAY@2200 HALIMA Administration Furosemide 40 mg 05/19/19 10:00 05/19/19 09:17 Lasix PO 40 mg QDAY HALIMA Administration Gabapentin 600 mg 05/19/19 10:00 05/19/19 09:18 Neurontin PO 600 mg QDAY HALIMA Administration Isosorbide Mononitrate 30 mg 05/19/19 11:00 05/19/19 12:32 Imdur PO 30 mg QDAY HALIMA Administration Lisinopril 5 mg 05/19/19 10:00 05/19/19 09:19 Zestril PO 5 mg QDAY HALIMA Administration Metoprolol Tartrate 50 mg 05/17/19 22:00 05/19/19 09:18 Lopressor PO 50 mg BID HALIMA Administration Nifedipine 90 mg 05/18/19 10:00 05/19/19 09:18 Procardia Xl PO 90 mg QDAY HALIMA Administration Nitroglycerin 0.4 mg 05/17/19 14:39 Nitrostat SL .Q5MIN PRN Chest Pain Ondansetron HCl 4 mg 05/17/19 14:39 Zofran IV Q8H PRN Nausea And Vomiting Pantoprazole Sodium 40 mg 05/19/19 10:00 05/19/19 09:18 Protonix PO 40 mg QDAY HALIMA Administration Potassium Chloride 20 meq 05/19/19 10:00 05/19/19 09:18 K-Dur PO 20 meq QDAY HALIMA Administration Ranolazine 1,000 mg 05/18/19 22:00 05/19/19 09:17 Ranexa Er PO 1,000 mg BID HALIMA Administration Sodium Chloride 10 ml 05/17/19 22:00 05/19/19 09:37 Sodium Chloride Flush Syringe 10 Ml IV 10 ml BID HALIMA Administration Sodium Chloride 10 ml 05/17/19 14:39 Sodium Chloride Flush Syringe 10 Ml IV PRN PRN LINE FLUSH
[2019-05-19] MEDS: ENOXAPARIN 40 MG/0.4 ML INJ SUB-Q SCH (22:31)
[2019-05-20] MEDS: HYDROcodone/ACETAMINOPHEN 10-325MG TAB PO PRN ×2 (04:31→12:50)
[2019-05-20] MEDS: FUROSEMIDE 40 MG TAB PO SCH (09:18)
[2019-05-20] MEDS: LISINOPRIL 5 MG TAB PO SCH (09:18)
[2019-05-20] MEDS: ASPIRIN 81 MG TAB CHEW PO SCH (09:18)
[2019-05-20] MEDS: NIFEdipine XL 90 MG TAB PO SCH (09:18)
[2019-05-20] MEDS: GABAPENTIN 300 MG CAP PO SCH (09:18)
[2019-05-20] MEDS: POTASSIUM CHLORIDE ER 20 MEQ TAB PO SCH (09:18)
[2019-05-20] MEDS: RANOLAZINE ER 500 MG TAB 12HR PO SCH (09:18)
[2019-05-20] MEDS: PANTOPRAZOLE 40 MG TAB PO SCH (09:19)
[2019-05-20] MEDS: METOPROLOL TARTRATE 50 MG TAB PO SCH (09:20)
--- NOTE | 2019-05-20 11:25 | Discharge Summary ---
Providers - Providers Date of Admission: 05/17/19 14:39 Date of discharge: 05/20/19 Attending physician: AARON FRAZIER 05/17/19 11:56 Consult to Physician [CONS] Urgent Comment: Consulting Provider: SALLY BAILON Physician Instructions: Reason For Exam: cp sirs + tropinin 05/18/19 05:05 Consult to Wound/ET Nurse [CONS] Urgent Reason For Exam: wound eval to left toes Primary care physician: [employer] Hospitalization Condition: Stable Hospital course: Patient is a 38 yo man with a history of cerebral palsy with Right Hemiparesis (walks with a device occassionally), Obesity, HTN, DM type 2, Systolic CHF(45%), CAD S/P Stent Placement, [facility] 11/2017 showed 100% occluded diagonal branch, LVEF 45-50%, Cardiomyopathy, s/p Pacemaker placement and lead extraction in 2015 at [place] who later determined the patient no longer needed a PM who presented to [facility] ED with chest pains and SOB. He was found to have Angina as well as symptoms consistent with CHF Decompensation. Pt admitted to telemetry. Cardiology consulted * CTA chest reports no PE, +pulmonary edema, CAD * CT abd/pelvis with contrast reports mild hepatosplenomegaly, no acute inflammatory process, right L3, L4 transverse process fractures which appear subacute, correlation for recent trauma is recommended Discharge Diagnoses: Chest pains, Stable angina, with CAD, improved, chest pain free today, last chest pain was yesterday, Ranexa increase yesterday but he is still having chest pains Acute hypoxic respiratory failure, pulse ox 81% on RA: I have asked the nurse re-check O2 stats with 6 minute walk Acute on chronic systolic CHF (congestive heart failure) Admit to telemetry, strict I/O, daily weight, bnp, pulse oximetry, chest x ray, monitor uop q shift, thyroid panel, supplemental oxygen. Diabetes mellitus type 2 on Insulin, uncontrolled hyperglycemia: ADA diet, insulin, accu check, hypoglycemia protocol Cerebral palsy with right side contractures: supportive care, fall precautions. Obesity hypoventilation syndrome, suspected CATHERINE: Supplemental oxygen, nebulizer therapy, NIPPV as clinically indicated, pulse oximetry, Advised for outpatient sleep study H/O CAD (coronary artery disease): medical management, low salt, low cholesterol diet, statin therapy, lipid panel Essential hypertension: Monitor BP q shift, continue medical management Disposition: DC-01 TO HOME OR SELFCARE Time spent for discharge: 35 minutes Core Measure Documentation - Palliative Care Palliative Care/ Comfort Measures: Not Applicable - Core Measures Any of the following diagnoses?: heart failure - VTE Discharge Requirements Deep Vein Thrombosis/Pulmonary Embolism Present on Admission: No Has pt received <5 days of overlap therapy or INR<2.0: No Anticoagulant overlap therapy prescribed at discharge: No Contraindication No Overlap Therapy order at DC: Not Indicated - Heart Failure Discharge Requirements SMOOTH/ARB for LVSD if EF <40%: Yes Beta saji at discharge: Yes Exam - Physical Exam Narrative exam: Gen: WDWN, NAD, Awake, Alert, Orientated HEENT: NCAT, EOMI, PERRL, OP Clear Neck: supple, no adenopathy, no thyromegaly, no JVD CVS/Heart: RRR, normal S1S2, pulses present bilaterally Chest/Lungs: CTA B, Symmetrical chest expansion, good air entry bilaterally, totally reproducible severe upper chest wall tenderness, he jumps with slightest touch GI/Abdomen: soft, NTND, good bowel sounds, no guarding or rebound /Bladder: no suprapubic tenderness, no CVA or paraspinal tenderness Extermity/Skin: no c/c/e, no obvious rash, left 3 toe ulcer between 3-4 toes, dime size ulceration MSK: FROM x 4 Neuro: CN 2-12 grossly intact, no new focal deficits Psych: calm - Constitutional Vitals: Temp Pulse Resp BP Pulse Ox 97.2 F L 96 H 18 133/89 95 05/20/19 08:02 05/20/19 09:20 05/20/19 08:02 05/20/19 09:20 05/20/19 08:16 Plan Activity: other (no strenous activity unless cleared PCP) Diet: low salt, diabetic Durable Medical Equipment Needed Upon Discharge: Oxygen Additional Instructions: See Dr. Treviño for evaluation for sleep study Follow up with: PRIMARY CAREMD [Primary Care Provider] - 3-5 Days INDER TREVIÑO MD [Staff Physician] - 7 Days Prescriptions: RX: AtorvaSTATin [Lipitor] 40 mg PO QHS #30 tablet RX: Aspirin [Aspirin BABY CHEW TAB] 81 mg PO QDAY #30 tab.chew RX: ISOSORBIDE MONOnitrate [Imdur ER] 60 mg PO QDAY #30 tablet RX: HYDROcodone/APAP 10-325 [Malo 10-325 mg TAB] 1 each PO Q8HR PRN #15 tablet PRN Reason: Pain , Severe (7-10) RX: Ranolazine ER [Ranexa ER] 2 tab PO BID #120 tablet
[2019-05-20 11:46] VITALS: BP 142/92
--- NOTE | 2019-05-20 12:04 | Progress Note ---
Assessment and Plan Chest pain, musculoskeletal Shortness of breath -resolved Hx of CAD [facility] 11/2017: 100% occluded diagonal branch, LVEF 45-50%. Medical therapy recommended. Hx of Cerebral Palsy s/p Pacemaker lead extraction in 2015 at [facility] who later determined the patient no longer needed a PM Hypertension Diabetes Obesity Sleep apnea Continue medical therapy for underlying coronary artery disease. Stable cardiac lara. Once discharged, patient will follow up with his primary hotel clerk at [facility] within 5-7 days. Subjective Date of service: 05/20/19 Interval history: Patient denies chest pain and shortness of breath. Reports he is feeling better. Objective Vital Signs Temp Pulse Pulse Pulse Resp BP Pulse Ox 05/20/19 11:44 97.7 F 84 18 142/92 93 05/20/19 09:20 96 H 133/89 05/20/19 09:19 96 H 133/89 05/20/19 09:18 96 H 133/89 05/20/19 08:37 86 05/20/19 08:16 95 05/20/19 08:02 97.2 F L 81 18 133/89 91 05/20/19 04:19 97.9 F 05/20/19 04:16 83 18 132/92 96 05/19/19 23:30 97.7 F 05/19/19 23:28 86 20 108/69 93 05/19/19 22:36 95 H 116/74 05/19/19 22:00 83 89 89 05/19/19 21:53 98.4 F 05/19/19 21:51 94 H 20 109/82 93 05/19/19 18:06 98.2 F 57 L 18 108/75 84 05/19/19 12:32 88 124/92 - Physical Examination General: No Apparent Distress HEENT: Positive: PERRL Neck: Positive: trachea midline Cardiac: Positive: Reg Rate and Rhythm Lungs: Positive: Decreased Breath Sounds Neuro: Positive: Grossly Intact Abdomen: Positive: Soft Extremities: Absent: edema
== END 2019-05-20 16:15 | disposition home health service (06) | DRG 291 ==
LOC: ED 08:32 → 4A 14:39
PROVIDERS: ADMIT Internal Medicine; ATTEND Internal Medicine
DX: I11.0 Hypertensive heart disease with heart failure (principal); J96.01 Acute respiratory failure with hypoxia; E66.2 Morbid (severe) obesity with alveolar hypoventilation; I69.851 Hemiplegia and hemiparesis following other cerebrovascular disease affecting right dominant side; I50.23 Acute on chronic systolic (congestive) heart failure; G80.9 Cerebral palsy, unspecified; I25.82 Chronic total occlusion of coronary artery; E11.9 Type 2 diabetes mellitus without complications; I25.118 Atherosclerotic heart disease of native coronary artery with other forms of angina pectoris; R07.89 Other chest pain; E11.65 Type 2 diabetes mellitus with hyperglycemia; Z68.37 Body mass index [BMI] 37.0-37.9, adult; Z87.891 Personal history of nicotine dependence; Z88.0 Allergy status to penicillin
CPT/HCPCS: 36415; 71045; 71275; 74177; 80053; 80061; 81001; 82140; 82550; 82553; 83735; 83880; 84100; 84484; 85025; 85379; 87040; 93005; 93010; 96374; 96375; G0378; A9270-GY; J0696; J1650; J2270; J2405; J3475; J7030; J7050; Q9967

== ENCOUNTER 2019-10-12 05:58 | Emergency (ER) | payer MEDICARE ==
--- NOTE | 2019-10-12 07:02 | XRay Report ---
CHEST 1 VIEW INDICATION / CLINICAL INFORMATION: Chest Pain. COMPARISON: 05/17/2019 FINDINGS: SUPPORT DEVICES: None. HEART / MEDIASTINUM: No significant abnormality. LUNGS / PLEURA: No significant pulmonary or pleural abnormality. No pneumothorax. ADDITIONAL FINDINGS: No significant additional findings. IMPRESSION: 1. No significant change Signer Name: Scar Murphy MD Signed: 10/12/2019 6:58 AM Workstation Name: [id number]
[2019-10-12 07:29] LABS: INR 0.92 (0.87-1.13)
[2019-10-12 07:30] LABS: Hematocrit 40.3 % (35.5-45.6); Hemoglobin 13.2 gm/dl (11.8-15.2); Mean Corpuscular HGB Conc 33 % (32-34); Mean Corpuscular Volume 86 fl (84-94); Platelet Count 174 K/mm3 (140-440); Red Blood Count 4.67 M/mm3 (3.65-5.03)
[2019-10-12 07:42] LABS: Alanine Aminotransferase 19 units/L (7-56); Albumin 3.9 g/dL (3.9-5); BUN/Creatinine Ratio 25; Blood Urea Nitrogen 32 mg/dL (9-20); Calcium 8.9 mg/dL (8.4-10.2); Hemolysis Index 17
[2019-10-12] MEDS ORDERED: ONDANSETRON 4 MG ODT TAB PO ONE (07:48)
[2019-10-12] MEDS ORDERED: HYDROcodone/ACETAMINOPHEN 10-325MG TAB PO ONE (07:48)
[2019-10-12] MEDS ORDERED: ASPIRIN 81 MG TAB CHEW PO ONE (07:49)
[2019-10-12 07:53] LABS: Chol/HDL Ratio 4.87 %; HDL Cholesterol 33 mg/dL (40-59); LDL Cholesterol,Direct 97 mg/dL (50-130)
--- NOTE | 2019-10-12 08:32 | Emergency Department Report ---
ED General Adult HPI - General Chief complaint: Chest Pain Stated complaint: JORDY Time Seen by Provider: 10/12/19 07:28 Source: patient, EMS Mode of arrival: Stretcher Limitations: No Limitations - History of Present Illness Initial comments: The patient presents to the emergency department the chief complaint of chest pain with shortness of breath for the last 2 days as well as swelling of his legs. Patient states he has a history of obstructive sleep apnea and wears O2 at home at 3 L. Patient describes chest pain as a tightness and denies any rad iation of his chest pain. Patient dates he has a history congestive heart failure as well. -: Gradual, days(s) (2) Location: chest Radiation: non-radiation Severity scale (0 -10): 6 Quality: dull Consistency: constant Improves with: none Worsens with: none Associated Symptoms: denies other symptoms Treatments Prior to Arrival: none - Related Data Home Medications Medication Instructions Recorded Confirmed Last Taken RX: NIFEdipine [Nifedipine ER] 90 mg PO DAILY 11/18/17 05/17/19 05/17/19 RX: HYDROcodone/APAP 10-325 [Greig 1 each PO Q8HR PRN 05/17/19 05/17/19 05/17/19 10-325 mg TAB] RX: Furosemide [Lasix TAB] 40 mg PO QDAY 05/18/19 05/18/19 Unknown RX: Gabapentin [Neurontin] 600 mg PO QDAY 05/18/19 05/18/19 Unknown RX: Glimepiride [Amaryl] 4 mg PO QDAY 05/18/19 05/18/19 Unknown RX: Pantoprazole [Protonix TAB] 40 mg PO QDAY 05/18/19 05/18/19 Unknown RX: Potassium Chloride [K-Dur] 20 meq PO QDAY 05/18/19 05/18/19 Unknown RX: lisinopriL [Zestril TAB] 5 mg PO QDAY 05/18/19 05/18/19 Unknown RX: metFORMIN [Glucophage] 500 mg PO BID 05/18/19 05/18/19 Unknown Previous Rx's Medication Instructions Recorded Last Taken Type RX: Metoprolol [Lopressor TAB] 50 mg PO BID #60 tablet 11/20/17 05/17/19 Rx RX: Acetaminophen [Acetaminophen 1 tab PO Q4H PRN #15 tablet 05/20/19 Unknown Rx TAB] RX: Aspirin [Aspirin BABY CHEW TAB] 81 mg PO QDAY #30 tab.chew 05/20/19 Unknown Rx RX: AtorvaSTATin [Lipitor] 40 mg PO QHS #30 tablet 05/20/19 Unknown Rx RX: HYDROcodone/APAP 10-325 [Greig 1 each PO Q8HR PRN #15 tablet 05/20/19 Unknown Rx 10-325 mg TAB] RX: ISOSORBIDE MONOnitrate [Imdur 60 mg PO QDAY #30 tablet 05/20/19 Unknown Rx ER] RX: Ranolazine ER [Ranexa ER] 2 tab PO BID #120 tablet 05/20/19 Unknown Rx Allergies Allergy/AdvReac Type Severity Reaction Status Date / Time Penicillins Allergy Unknown Verified 06/03/14 11:23 ED Review of Systems ROS: Stated complaint: JORDY Other details as noted in HPI Constitutional: denies: chills, fever Eyes: denies: eye pain, eye discharge, vision change ENT: denies: ear pain, throat pain Respiratory: shortness of breath. denies: cough, wheezing Cardiovascular: chest pain. denies: palpitations Endocrine: no symptoms reported Gastrointestinal: denies: abdominal pain, nausea, diarrhea Genitourinary: denies: urgency, dysuria Musculoskeletal: denies: back pain, joint swelling, arthralgia Skin: denies: rash, lesions Neurological: denies: headache, weakness, paresthesias Psychiatric: denies: anxiety, depression Hematological/Lymphatic: denies: easy bleeding, easy bruising ED Past Medical Hx - Past Medical History Hx Hypertension: Yes Hx Congestive Heart Failure: Yes Hx Diabetes: Yes (2011) Hx Asthma: No Hx COPD: No Hx HIV: No Additional medical history: pt has pacemaker and hx of irregular heart beat. 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 - Surgical History Hx Pacemaker: No (s/p pacemaker removal) Additional Surgical History: R leg, R arm - Social History Smoking Status: Former Smoker Substance Use Type: None - Medications Home Medications: Home Medications Medication Instructions Recorded Confirmed Last Taken Type RX: NIFEdipine [Nifedipine ER] 90 mg PO DAILY 11/18/17 05/17/19 05/17/19 History RX: Metoprolol [Lopressor TAB] 50 mg PO BID #60 tablet 11/20/17 05/17/19 05/17/19 Rx RX: HYDROcodone/APAP 10-325 [Greig 1 each PO Q8HR PRN 05/17/19 05/17/19 05/17/19 History 10-325 mg TAB] RX: Furosemide [Lasix TAB] 40 mg PO QDAY 05/18/19 05/18/19 Unknown History RX: Gabapentin [Neurontin] 600 mg PO QDAY 05/18/19 05/18/19 Unknown History RX: Glimepiride [Amaryl] 4 mg PO QDAY 05/18/19 05/18/19 Unknown History RX: Pantoprazole [Protonix TAB] 40 mg PO QDAY 05/18/19 05/18/19 Unknown History RX: Potassium Chloride [K-Dur] 20 meq PO QDAY 05/18/19 05/18/19 Unknown History RX: lisinopriL [Zestril TAB] 5 mg PO QDAY 05/18/19 05/18/19 Unknown History RX: metFORMIN [Glucophage] 500 mg PO BID 05/18/19 05/18/19 Unknown History RX: Acetaminophen [Acetaminophen 1 tab PO Q4H PRN #15 tablet 05/20/19 Unknown Rx TAB] RX: Aspirin [Aspirin BABY CHEW TAB] 81 mg PO QDAY #30 tab.chew 05/20/19 Unknown Rx RX: AtorvaSTATin [Lipitor] 40 mg PO QHS #30 tablet 05/20/19 Unknown Rx RX: HYDROcodone/APAP 10-325 [Greig 1 each PO Q8HR PRN #15 tablet 05/20/19 Unknown Rx 10-325 mg TAB] RX: ISOSORBIDE MONOnitrate [Imdur 60 mg PO QDAY #30 tablet 05/20/19 Unknown Rx ER] RX: Ranolazine ER [Ranexa ER] 2 tab PO BID #120 tablet 05/20/19 Unknown Rx ED Physical Exam - General Limitations: No Limitations General appearance: alert, in no apparent distress - Head Head exam: Present: atraumatic, normocephalic - Eye Eye exam: Present: normal appearance, PERRL, EOMI - ENT ENT exam: Present: mucous membranes moist - Neck Neck exam: Present: normal inspection - Respiratory Respiratory exam: Present: rales. Absent: respiratory distress - Cardiovascular Cardiovascular Exam: Present: regular rate, normal rhythm. Absent: systolic murmur, diastolic murmur, rubs, gallop - GI/Abdominal GI/Abdominal exam: Present: soft, normal bowel sounds. Absent: distended, t enderness - Rectal Rectal exam: Present: deferred - Extremities Exam Extremities exam: Present: normal inspection - Back Exam Back exam: Present: normal inspection - Neurological Exam Neurological exam: Present: alert, oriented X3, CN II-XII intact. Absent: motor sensory deficit - Psychiatric Psychiatric exam: Present: normal affect, normal mood - Skin Skin exam: Present: warm, dry, intact, normal color. Absent: rash ED Course Vital Signs 10/12/19 10/12/19 06:19 10:31 Temperature 98.4 F Pulse Rate 85 87 Respiratory 20 20 Rate Blood Pressure 115/76 Blood Pressure 109/66 [Left] O2 Sat by Pulse 94 90 Oximetry ED Medical Decision Making - Lab Data Result diagrams: 10/12/19 07:08 10/12/19 07:08 Lab Results 10/12/19 10/12/19 10/12/19 Range/Units 07:08 07:08 07:08 WBC 15.1 H (4.5-11.0) K/mm3 RBC 4.67 (3.65-5.03) M/mm3 Hgb 13.2 (11.8-15.2) gm/dl Hct 40.3 (35.5-45.6) % MCV 86 (84-94) fl MCH 28 (28-32) pg MCHC 33 (32-34) % RDW 15.0 (13.2-15.2) % Plt Count 174 (140-440) K/mm3 Lymph % (Auto) Customer Logistics Manager [place] % (Auto) Customer Logistics Manager Eos % (Auto) Customer Logistics Manager Baso % (Auto) Customer Logistics Manager Lymph # Customer Logistics Manager [place] # Customer Logistics Manager Eos # Customer Logistics Manager Baso # Customer Logistics Manager Seg Neutrophils % Customer Logistics Manager Seg Neutrophils # Customer Logistics Manager PT 12.5 (12.2-14.9) Sec. INR 0.92 (0.87-1.13) APTT 25.0 (24.2-36.6) Sec. Sodium 142 (137-145) mmol/L Potassium 4.3 (3.6-5.0) mmol/L Chloride 105.1 (98-107) mmol/L Carbon Dioxide 22 (22-30) mmol/L Anion Gap 19 mmol/L BUN 32 H (9-20) mg/dL Creatinine 1.3 (0.8-1.5) mg/dL Estimated GFR > 60 ml/min BUN/Creatinine Ratio 25 % Glucose 304 H (75-100) mg/dL Calcium 8.9 (8.4-10.2) mg/dL Total Bilirubin 0.40 (0.1-1.2) mg/dL AST 14 (5-40) units/L ALT 19 (7-56) units/L Alkaline Phosphatase 101 (35-129) units/L Troponin T 0.065 H (0.00-0.029) ng/mL NT-Pro-B Natriuret Pep (0-450) pg/mL Total Protein 6.0 L (6.3-8.2) g/dL Albumin 3.9 (3.9-5) g/dL Albumin/Globulin Ratio 1.9 % Triglycerides 290 H (2-149) mg/dL Cholesterol 161 (50-199) mg/dL LDL Cholesterol Direct 97 (50-130) mg/dL HDL Cholesterol 33 L (40-59) mg/dL Cholesterol/HDL Ratio 4.87 % 10/12/19 10/12/19 Range/Units 08:08 10:32 WBC (4.5-11.0) K/mm3 RBC (3.65-5.03) M/mm3 Hgb (11.8-15.2) gm/dl Hct (35.5-45.6) % MCV (84-94) fl MCH (28-32) pg MCHC (32-34) % RDW (13.2-15.2) % Plt Count (140-440) K/mm3 Lymph % (Auto) [place] % (Auto) Eos % (Auto) Baso % (Auto) Lymph # [place] # Eos # Baso # Seg Neutrophils % Seg Neutrophils # PT (12.2-14.9) Sec. INR (0.87-1.13) APTT (24.2-36.6) Sec. Sodium (137-145) mmol/L Potassium (3.6-5.0) mmol/L Chloride (98-107) mmol/L Carbon Dioxide (22-30) mmol/L Anion Gap mmol/L BUN (9-20) mg/dL Creatinine (0.8-1.5) mg/dL Estimated GFR ml/min BUN/Creatinine Ratio % Glucose (75-100) mg/dL Calcium (8.4-10.2) mg/dL Total Bilirubin (0.1-1.2) mg/dL AST (5-40) units/L ALT (7-56) units/L Alkaline Phosphatase (35-129) units/L Troponin T 0.065 H (0.00-0.029) ng/mL NT-Pro-B Natriuret Pep 467.7 H (0-450) pg/mL Total Protein (6.3-8.2) g/dL Albumin (3.9-5) g/dL Albumin/Globulin Ratio % Triglycerides (2-149) mg/dL Cholesterol (50-199) mg/dL LDL Cholesterol Direct (50-130) mg/dL HDL Cholesterol (40-59) mg/dL Cholesterol/HDL Ratio % - EKG Data -: EKG Interpreted by Al EKG shows normal: sinus rhythm Rate: normal - Radiology Data Radiology results: report reviewed - Medical Decision Making The patient had 2 identical elevated troponins Discussed the patient with [facility] and his chart was reviewed by talia morse and the patient can follow-up with them tomorrow morning with an appointment at 10:40 AM Results and plan of care were discussed with the patient and he expressed understanding that he has a follow-up appointment in the morning Critical care attestation.: If time is entered above; I have spent that time in minutes in the direct care of this critically ill patient, excluding procedure time. ED Disposition Clinical Impression: Nonspecific chest pain Disposition: DC-01 TO HOME OR SELFCARE Is pt being admited?: No Does the pt Need Aspirin: No Condition: Stable Instructions: Chest Pain (ED) Additional Instructions: Please return if your symptoms become worse Please follow-up with your 10:40 AM appointment tomorrow morning with your timber incisor operator Referrals: PRIMARY MD MAREN [Primary Care Provider] - 3-5 Days SALLY BAILON MD [Staff Physician] - 24 Hours Time of Disposition: 12:00
[2019-10-12 10:32] VITALS: BP 109/66
[2019-10-12] MEDS ORDERED: KETOROLAC 60 MG/2 ML INJ IVP ONE (11:54)
[2019-10-13 11:48] LABS: ABG Base Excess 1.2 mmol/L (-2.0-3.0); ABG Methemoglobin 0.6 % (0.0-1.5); ABG Oxygen Saturation 78.8 % (95.0-99.0); ABG PH 7.41 pH Units (7.350-7.450); ABG PO2 41.7 mm Hg (80.0-90.0)
[2019-10-13] MEDS ORDERED: HYDROcodone/ACETAMINOPHEN 10-325MG TAB ONE (17:13)
== END 2019-10-12 12:31 | disposition home or self-care (01) ==
LOC: ED 05:58
DX: R07.89 Other chest pain (principal); I11.0 Hypertensive heart disease with heart failure; I50.9 Heart failure, unspecified; K13.0 Diseases of lips; E11.9 Type 2 diabetes mellitus without complications; Z95.0 Presence of cardiac pacemaker; Z98.890 Other specified postprocedural states; Z88.0 Allergy status to penicillin; Z79.899 Other long term (current) drug therapy; Z87.891 Personal history of nicotine dependence
CPT/HCPCS: 36415; 71045; 80053; 80061; 83880; 84484; 85025; 85610; 85730; 93005; 93010; 96374; 99284; J1885; 82803; Q0162

== ENCOUNTER 2021-12-11 05:01 | Emergency (ER) | payer MEDICARE ==
--- NOTE | 2021-12-11 06:34 | Emergency Department Report ---
HPI - General Chief Complaint: Fall Time Seen by Provider: 12/11/21 06:17 - HPI HPI: Room 3 The patient is a 41-year-old male present with chief complaint of frequent falls. Patient states for the past 3 days he has fallen multiple times. Patient states he loses his balance and gets lightheaded prior to the falls. Patient states this morning was within the bathroom again got lightheaded and fell to the ground striking the back of his head and his buttocks. Patient complains of a slight headache. Patient states this morning he has some subster nal chest pain described as aching and sharpness in nature associated with shortness of breath. Patient denies nausea/vomiting or fever. The patient states his sister told him over the past 3 days he has been having conversations with people who were not in the room. The patient states he remembers these conversations and truly believed his family members were there having a whole conversation with him. ED Past Medical Hx - Past Medical History Hx Hypertension: Yes Hx Congestive Heart Failure: Yes Hx Diabetes: Yes Hx Renal Disease: Yes (YAMIL on CKD) Hx Asthma: Yes (childhood) Additional medical history: pt has pacemaker and hx of irregular heart beat. 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 - Surgical History Hx Open Heart Surgery: No (pace maker placed and taken out at 2013) Hx Pacemaker: No (previous PPM; removed 8 yrs ago) Additional Surgical History: R leg, R arm - Family History Family history: no significant - Social History Smoking Status: Former Smoker (None x6 months) Substance Use Type: None (Denies illicit drug use), Alcohol (Occasional) - Medications Home Medications: Home Medications Medication Instructions Recorded Confirmed Last Taken Type Amiodarone [Cordarone 200 MG TAB] 200 mg PO BID 30 Days #60 tablet 12/06/21 Unknown Rx Apixaban [Eliquis] 5 mg PO Q12HR 30 Days #60 tablet 12/06/21 Unknown Rx Aspirin [Aspirin BABY CHEW TAB] 81 mg PO QDAY 30 Days #30 tab.chew 12/06/21 Unknown Rx AtorvaSTATin [Lipitor] 20 mg PO QHS 30 Days #30 tablet 12/06/21 Unknown Rx Cholecalciferol Vit D3 [Vitamin D3 1,000 unit PO QDAY 30 Days #30 tab 12/06/21 11/29/21 1 Day Ago Rx 1,000 UNIT TAB] ~11/28/21 Dicyclomine [Bentyl] 20 mg PO QID 30 Days #120 tablet 12/06/21 Unknown Rx Gabapentin 100 mg PO Q8HR #90 capsule 12/06/21 Unknown Rx ISOSORBIDE MONOnitrate [Imdur ER] 60 mg PO QDAY #30 tablet 12/06/21 Unknown Rx Metoprolol [Lopressor TAB] 50 mg PO BID 30 Days #60 tablet 12/06/21 Unknown Rx NIFEdipine XL [Procardia Xl] 90 mg PO QDAY 30 Days #30 tablet 12/06/21 Unknown Rx Ranolazine ER [Ranexa ER] 1,000 mg PO BID 30 Days #120 tablet 12/06/21 Unknown Rx Tamsulosin [Flomax] 0.4 mg PO QDAY 30 Days #30 capsule 12/06/21 Unknown Rx levoFLOXacin [Levaquin TAB] 500 mg PO Q24HR 1 Days #1 tablet 12/06/21 Unknown Rx Gabapentin 300 mg PO TID 30 Days #90 cap 12/07/21 Unknown Rx ED Review of Systems ROS: Stated complaint: FALL/BACK PAIN Other details as noted in HPI Constitutional: denies: fever Eyes: denies: eye pain ENT: denies: throat pain Respiratory: shortness of breath. denies: cough Cardiovascular: chest pain Endocrine: no symptoms reported Gastrointestinal: denies: nausea, vomiting Genitourinary: denies: dysuria Musculoskeletal: back pain Neurological: headache Physical Exam - Physical Exam Vital Signs: Vital Signs 12/11/21 12/11/21 12/11/21 05:03 05:45 06:00 Temperature 98.9 F Pulse Rate 88 72 81 Respiratory 16 13 12 Rate Blood Pressure 118/74 124/93 O2 Sat by Pulse 95 93 93 Oximetry Physical Exam: GENERAL: The patient is well-developed well-nourished male lying on stretcher not appearing to be in acute distress. [] HEENT: Normocephalic. Atraumatic. Extraocular motions are intact. Patient has moist mucous membranes. NECK: Supple. Mild lower C-spine tenderness. No step-off CHEST/LUNGS: Clear to auscultation. There is no respiratory distress noted. HEART/CARDIOVASCULAR: Irregularly irregular. There is no tachycardia. There is no gallop rub or murmur. ABDOMEN: Abdomen is soft, with mild midepigastric discomfort to palpation. No rebound or guard. Patient has normal bowel sounds. There is no abdominal distention. SKIN: There is no rash. There is no edema. There is no diaphoresis. NEURO: The patient is awake, alert, and oriented. The patient is cooperative. The patient has right-sided weakness from cerebral palsy. The patient has normal speech MUSCULOSKELETAL: There is tenderness of the upper thoracic and lumbar spine. There is no evidence of acute injury. ED Course Vital Signs 12/11/21 12/11/21 12/11/21 05:03 05:45 06:00 Temperature 98.9 F Pulse Rate 88 72 81 Respiratory 16 13 12 Rate Blood Pressure 118/74 124/93 O2 Sat by Pulse 95 93 93 Oximetry ED Medical Decision Making - Lab Data Result diagrams: 12/11/21 06:32 12/11/21 06:32 - EKG Data -: EKG Interpreted by Me Rate: normal - EKG Data When compared to previous EKG there are: no significant change Interpretation: nonspecific ST-T wave maira, other (Atrial fibrillation at 79 bpm) - Radiology Data Radiology results: report reviewed (CT head, CT cervical spine, chest x-ray, VQ scan), image reviewed (CT head, CT cervical spine, chest x-ray, VQ scan) interpreted by me: Thoracic spine x-ray-no acute fracture seen Lumbar sacral spine x-ray-no acute fractures Chest x-ray-no focal infiltrates, no pneumothorax [facility] [address] [place] [address] Cat Scan Report Signed Patient: MARIS US JR MR#: [id number] : 1980 Acct:[id number] Age/Sex: 41 / M ADM Date: 12/11/21 Loc: ED Attending Dr: Ordering Physician: FRANCA GARCES MD Date of Service: 12/11/21 Procedure(s): CT cervical spine wo con Accession Number(s): [id number] cc: FRANCA GARCES MD CT CERVICAL SPINE WITHOUT CONTRAST INDICATION / CLINICAL INFORMATION: Pain after fall, frequent falls.. TECHNIQUE: Axial CT images were obtained through the cervical spine. Sagittal and coronal reformatted images were produced. All CT scans at this location are performed using CT dose reduction for ALARA by means of automated exposure control. COMPARISON: None available. FINDINGS: SKULL BASE: No significant abnormality of the skull base. CRANIOCERVICAL JUNCTION: No significant abnormality of the craniocervical junction. ALIGNMENT: Very minimal retrolisthesis of C3 on C4 is demonstrated. VERTEBRAL BODIES: Minimal loss of vertebral body heights at C4 and C7. DISK SPACES: Focal narrowing of disc space at C3-4 and C7-T1. At these levels there is moderate endplate irregularity as well as anterior osteophyte formation as well as at C3 calcification along possibly underlying the anterior longitudinal ligament. No soft tissue pannus. FACET JOINTS: Fusion of facet articulation on the right at C5-6. CENTRAL CANAL: Mild central stenosis at C7-T1. The cutdown here SOFT TISSUES: No significant abnormality of soft tissues or musculature. THYROID: No significant abnormality. UPPER CHEST: No significant abnormality of the visualized chest. ADDITIONAL FINDINGS: None. IMPRESSION: 1. Somewhat focal degenerative changes at C3-4 and C7-T1 as detailed. These findings could reflect sequelae of discitis/osteomyelitis versus advanced degenerative change. 2. Fusion of facets as detailed. C5-6. 3. No acute fracture of the cervical spine. Signer Name: Maris Coley II, MD Signed: 12/11/2021 7:19 AM Workstation Name: [id number] Transcribed By: CHANTE Dictated By: MARIS COLEY II, MD Electronically Authenticated By: MARIS COLEY II, MD Signed Date/Time: 12/11/21718 DD/ 3 TD/TT: Print Cancel [facility] [address] [place] [address] Cat Scan Report Signed Patient: MARIS US JR MR#: [id number] : 1980 Acct:[id number] Age/Sex: 41 / M ADM Date: 12/11/21 Loc: ED Attending Dr: Ordering Physician: FRANCA GARCES MD Date of Service: 12/11/21 Procedure(s): CT head/brain wo con Accession Number(s): [id number] cc: FRANCA GARCES MD CT HEAD WITHOUT CONTRAST INDICATION / CLINICAL INFORMATION: Pain after fall, frequent falls.. TECHNIQUE: CT head was performed without administration of intravenous contrast. All CT scans at this location are performed using CT dose reduction for ALARA by means of automated exposure control. COMPARISON: None available. FINDINGS: CEREBRAL HEMISPHERES: Encephalomalacia in the region of the left sylvian fissure. Findings compatible with sequelae of previous infarction. Otherwise age-appropriate generalized atrophy with periventricular regions of white matter hypoattenuation which are minimally present compatible with minimal microvascular ischemia. Ventricles normal in size. Basal cisterns are patent. HEMORRHAGE: None. CEREBELLUM / BRAINSTEM: No significant abnormality. ORBITS: Small metallic radiopaque foreign body medial canthus left orbit. Orbits demo nstrate no acute findings. SOFT TISSUES: No significant abnormality. SKULL: No significant abnormality. PARANASAL SINUSES / MASTOID AIR CELLS: Normal as visualized. ADDITIONAL FINDINGS: None. IMPRESSION: 1. 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 No acute intracranial injury. 2. Metallic foreign body medial canthus right orbit Signer Name: Maris Coley II, MD Signed: 12/11/2021 7:14 AM Workstation Name: [id number] Transcribed By: CHANTE Dictated By: MARIS COLEY II, MD Electronically Authenticated By: MARIS COLEY II, MD Signed Date/Time: 12/11/21713 DD/ 0 TD/TT: [facility] [address] [place] [address] XRay Report Signed Patient: MARIS US JR MR#: [id number] : 1980 Acct:[id number] Age/Sex: 41 / M ADM Date: 12/11/21 Loc: ED Attending Dr: Ordering Physician: FRANCA GARCES MD Date of Service: 12/11/21 Procedure(s): XR spine thoracic 3V Accession Number(s): [id number] cc: FRANCA GARCES MD Fluoro Time In Minutes: THORACIC SPINE 3 VIEWS INDICATION: Pain after fall. COMPARISON: None. IMPRESSION: Normal alignment. Mild multilevel discogenic DJD is present. The lateral view is slightly limited and resolution due to body habitus. No acute osseous abnormality is detected. LUMBOSACRAL SPINE 3 VIEWS INDICATION: Pain after fall. COMPARISON: None. IMPRESSION: There is mild levocurvature of the lumbar spine with apex near the L2-3 level. Severe degenerative disc findings are identified at L2-3. Mild degenerative disc findings at L1-2. The remaining disc levels are unremarkable. There is mild diffuse facet arthropathy. The SI joints are unremarkable. No acute osseous or soft tissue abnormality. Signer Name: Rickey Galarza Jr, MD Signed: 12/11/2021 8:21 AM Workstation Name: [id number] Transcribed By: TTR Dictated By: RICKEY GALARZA JR, MD Electronically Authenticated By: RICKEY GALARZA JR, MD Signed Date/Time: 12/11/21820 DD/ 7 TD/TT: [address] [address] XRay Report Signed Patient: MARIS US JR MR#: [id number] : 1980 Acct:[id number] Age/Sex: 41 / M ADM Date: 12/11/21 Loc: ED Attending Dr: Ordering Physician: FRANCA GARCES MD Date of Service: 12/11/21 Procedure(s): XR spine lumbosacral 2-3V Accession Number(s): [id number] cc: FRANCA GARCES MD Fluoro Time In Minutes: THORACIC SPINE 3 VIEWS INDICATION: Pain after fall. COMPARISON: None. IMPRESSION: Normal alignment. Mild multilevel discogenic DJD is present. The lateral view is slightly limited and resolution due to body habitus. No acute osseous abnormality is detected. LUMBOSACRAL SPINE 3 VIEWS INDICATION: Pain after fall. COMPARISON: None. IMPRESSION: There is mild levocurvature of the lumbar spine with apex near the L2-3 level. Severe dege nerative disc findings are identified at L2-3. Mild degenerative disc findings at L1-2. The remaining disc levels are unremarkable. There is mild diffuse facet arthropathy. The SI joints are unremarkable. No acute osseous or soft tissue abnormality. Signer Name: Rickey Galarza Jr, MD Signed: 12/11/2021 8:21 AM Workstation Name: [id number] Transcribed By: TTR Dictated By: RICKEY GALARZA JR, MD Electronically Authenticated By: RICKEY GALARZA JR, MD Signed Date/Time: 12/11/21820 DD/ 7 TD/TT: [address] [address] XRay Report Signed Patient: MARIS US JR MR#: [id number] : 1980 Acct:[id number] Age/Sex: 41 / M ADM Date: 12/11/21 Loc: ED Attending Dr: Ordering Physician: FRANCA GARCES MD Date of Service: 12/11/21 Procedure(s): XR chest 1V ap Accession Number(s): [id number] cc: FRANCA GARCES MD Fluoro Time In Minutes: CHEST 1 VIEW INDICATION: chest pain. COMPARISON: 12/04/2021 FINDINGS: Support devices: None. Heart: Within normal limits. Lungs/Pleura: No acute air space or interstitial disease. No pleural abnormality or pneumothorax. Additional findings: None. IMPRESSION: No acute findings. Signer Name: Rickey Galarza Jr, MD Signed: 12/11/2021 8:47 AM Workstation Name: [id number] Transcribed By: JADA Dictated By: RICKEY GALARZA JR, MD Electronically Authenticated By: RICKEY GALARZA JR, MD Signed Date/Time: 12/11/21846 DD/ 5 TD/TT: [address] [address] Nuclear Medicine Report Signed Patient: MARIS US JR MR#: [id number] : 1980 Acct:[id number] Age/Sex: 41 / M ADM Date: 12/11/21 Loc: ED Attending Dr: Ordering Physician: FRANCA GARCES MD Date of Service: 12/11/21 Procedure(s): NM perfusion only lung scan Accession Number(s): [id number] cc: FRANCA GARCES MD NUCLEAR MEDICINE PERFUSION LUNG SCAN INDICATION / CLINICAL INFORMATION: Chest pain. TECHNIQUE: 5.5 mCi of Tc-99m MAA were given by IV. COMPARISON: Chest radiograph dated 12/11/2021. FINDINGS: PERFUSION: No significant perfusion defects. ADDITIONAL FINDINGS: None. IMPRESSION: 1. Low probability for pulmonary embolism. Signer Name: Julio Hanna MD Signed: 12/11/2021 9:46 AM Workstation Name: [id number] Transcribed By: MN Dictated By: Julio Hanna MD Electronically Authenticated By: Julio Hanna MD Signed Date/Time: 12/11/21945 DD/ 4 TD/TT: - Differential Diagnosis Closed head injury, PE, ACS, pericarditis, ICH Critical care attestation.: If time is entered above; I have spent that time in minutes in the direct care of this critically ill patient, excluding procedure time. ED Disposition Clinical Impression: Chest pain, Frequent falls, Visual hallucinations, Auditory hallucinations Disposition: ADMITTED INPATIENT Is pt being admited?: Yes Does the pt Need Aspirin: No Condition: Fair Instructions: Nonspecific Chest Pain, Adult Referrals: PRIMARY CARE, [Primary Care Provider] - 3-5 Days Time of Disposition: 11:20 (Care transferred to hospitalist (Dr. Goyal)) Heart Score - HEART Score History: Moderately suspicious EKG: Non-specific Age: < 45 Risk factors: > 3 risk factors or hx of atherosclerotic disease Troponin: > 3x normal limit HEART Score: 6 - EKG Read Time Time EKG Completed: 05:51 EKG Read Time: 06:10
[2021-12-11 07:14] LABS: Hemoglobin 14.4 gm/dl (11.8-15.2); Mean Corpuscular HGB Conc 34 % (32-34); Mean Corpuscular Volume 85 fl (84-94); Platelet Count 145 K/mm3 (140-440); Red Blood Count 5.08 M/mm3 (3.65-5.03); Red Cell Distribution Width 16.6 % (13.2-15.2)
--- NOTE | 2021-12-11 07:18 | Cat Scan Report ---
CT HEAD WITHOUT CONTRAST INDICATION / CLINICAL INFORMATION: Pain after fall, frequent falls.. TECHNIQUE: CT head was performed without administration of intravenous contrast. All CT scans at this location are performed using CT dose reduction for ALARA by means of automated exposure control. COMPARISON: None available. FINDINGS: CEREBRAL HEMISPHERES: Encephalomalacia in the region of the left sylvian fissure. Findings compatible with sequelae of previous infarction. Otherwise age-appropriate generalized atrophy with periventric ular regions of white matter hypoattenuation which are minimally present compatible with minimal micr ovascular ischemia. Ventricles normal in size. Basal cisterns are patent. HEMORRHAGE: None. CEREBELLUM / BRAINSTEM: No significant abnormality. ORBITS: Small metallic radiopaque foreign body medial canthus left orbit. Orbits demonstrate no acute findings. SOFT TISSUES: No significant abnormality. SKULL: No significant abnormality. PARANASAL SINUSES / MASTOID AIR CELLS: Normal as visualized. ADDITIONAL FINDINGS: None. IMPRESSION: 1. 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 No acute intracranial i njury. 2. Metallic foreign body medial canthus right orbit Signer Name: Smith Beltran II, MD Signed: 12/11/2021 7:14 AM Workstation Name: [id number]
[2021-12-11 07:24] LABS: INR 1.13 (0.87-1.13)
--- NOTE | 2021-12-11 07:24 | Cat Scan Report ---
CT CERVICAL SPINE WITHOUT CONTRAST INDICATION / CLINICAL INFORMATION: Pain after fall, frequent falls.. TECHNIQUE: Axial CT images were obtained through the cervical spine. Sagittal and coronal reformatted images were produced. All CT scans at this location are performed using CT dose reduction for ALARA by means of automated exposure control. COMPARISON: None available. FINDINGS: SKULL BASE: No significant abnormality of the skull base. CRANIOCERVICAL JUNCTION: No significant abnormality of the craniocervical junction. ALIGNMENT: Very minimal retrolisthesis of C3 on C4 is demonstrated. VERTEBRAL BODIES: Minimal loss of vertebral body heights at C4 and C7. DISK SPACES: Focal narrowing of disc space at C3-4 and C7-T1. At these levels there is moderate endpl ate irregularity as well as anterior osteophyte formation as well as at C3 calcification along possib ly underlying the anterior longitudinal ligament. No soft tissue pannus. FACET JOINTS: Fusion of facet articulation on the right at C5-6. CENTRAL CANAL: Mild central stenosis at C7-T1. The cutdown here SOFT TISSUES: No significant abnormality of soft tissues or musculature. THYROID: No significant abnormality. UPPER CHEST: No significant abnormality of the visualized chest. ADDITIONAL FINDINGS: None. IMPRESSION: 1. Somewhat focal degenerative changes at C3-4 and C7-T1 as detailed. These findings could reflect se quelae of discitis/osteomyelitis versus advanced degenerative change. 2. Fusion of facets as detailed. C5-6. 3. No acute fracture of the cervical spine. Signer Name: Smith Beltran II, MD Signed: 12/11/2021 7:19 AM Workstation Name: [id number]
[2021-12-11 07:25] LABS: Partial Thromboplastin Time 33.8 Sec. (24.2-36.6)
[2021-12-11 07:55] LABS: Albumin 3.8 g/dL (3.9-5); Calcium 8.7 mg/dL (8.4-10.2); Creatine Kinase MB 12.3 ng/mL (0.0-4.0)
[2021-12-11 08:13] LABS: Chol/HDL Ratio 3.36 %
[2021-12-11 08:24] LABS: Free T4 (Free Thyroxine) 1.28 ng/dL (0.76-1.46)
--- NOTE | 2021-12-11 08:25 | XRay Report ---
THORACIC SPINE 3 VIEWS INDICATION: Pain after fall. COMPARISON: None. IMPRESSION: Normal alignment. Mild multilevel discogenic DJD is present. The lateral view is sligh tly limited and resolution due to body habitus. No acute osseous abnormality is detected. LUMBOSACRAL SPINE 3 VIEWS INDICATION: Pain after fall. COMPARISON: None. IMPRESSION: There is mild levocurvature of the lumbar spine with apex near the L2-3 level. Severe d egenerative disc findings are identified at L2-3. Mild degenerative disc findings at L1-2. The remain ing disc levels are unremarkable. There is mild diffuse facet arthropathy. The SI joints are unremark able. No acute osseous or soft tissue abnormality. Signer Name: Rickey Galarza Jr, MD Signed: 12/11/2021 8:21 AM Workstation Name: [id number]
[2021-12-11] MEDS ORDERED: fentaNYL 100 MCG/2 ML INJ IV ONE (08:51)
[2021-12-11] MEDS ORDERED: ONDANSETRON 4 MG/2 ML INJ IV ONE (08:51)
--- NOTE | 2021-12-11 08:51 | XRay Report ---
CHEST 1 VIEW INDICATION: chest pain. COMPARISON: 12/04/2021 FINDINGS: Support devices: None. Heart: Within normal limits. Lungs/Pleura: No acute air space or interstitial disease. No pleural abnormality or pneumothorax. Additional findings: None. IMPRESSION: No acute findings. Signer Name: Rickey Galarza Jr, MD Signed: 12/11/2021 8:47 AM Workstation Name: [id number]
[2021-12-11 09:20] LABS: Total Cells Counted 100
[2021-12-11 09:22] LABS: Anisocytosis Few; Macrocytosis Few; Platelet Estimate Consistent w Auto; RBC Morphology Normal
--- NOTE | 2021-12-11 09:50 | Nuclear Medicine Report ---
NUCLEAR MEDICINE PERFUSION LUNG SCAN INDICATION / CLINICAL INFORMATION: Chest pain. TECHNIQUE: 5.5 mCi of Tc-99m MAA were given by IV. COMPARISON: Chest radiograph dated 12/11/2021. FINDINGS: PERFUSION: No significant perfusion defects. ADDITIONAL FINDINGS: None. IMPRESSION: 1. Low probability for pulmonary embolism. Signer Name: Julio Hanna MD Signed: 12/11/2021 9:46 AM Workstation Name: [id number]
--- NOTE | 2021-12-11 10:26 | Electrocardiograph Report ---
[facility] Test Date: 2021-12-11 Test Time: 05:51:40 Pat Name: MARIS US JR Department: Room: Gender: M [employer] Paralegal: MARIA MORA : 1980 Requested By: FRANCA GARCES Order Number: [id number] Reading MD: Bony Braun Measurements Intervals [place] Rate: 79 P: CA: QRS: -36 QRSD: 102 T: 70 QT: 426 QTc: 489 Interpretive Statements Atrial fibrillation Inferior infarct, old Anterior infarct, old Compared to ECG 11/29/2021 13:56:59 Prolonged QT interval no longer present Myocardial infarct finding still present Electronically Signed On 12-11-2021 10:26:23 EDT by Bony Braun
[2021-12-11 16:42] VITALS: BP 128/110
== END 2021-12-11 17:43 | disposition admitted as inpatient to this hospital (09) ==
LOC: ED 05:01
DX: R07.89 Other chest pain (principal); R42 Dizziness and giddiness; R44.0 Auditory hallucinations; R44.1 Visual hallucinations; I13.0 Hypertensive heart and chronic kidney disease with heart failure and stage 1 through stage 4 chronic kidney disease, or unspecified chronic kidney disease; E11.22 Type 2 diabetes mellitus with diabetic chronic kidney disease; N18.9 Chronic kidney disease, unspecified; I50.9 Heart failure, unspecified; N17.9 Acute kidney failure, unspecified; J45.909 Unspecified asthma, uncomplicated; Z87.891 Personal history of nicotine dependence; Z72.89 Other problems related to lifestyle; Z79.899 Other long term (current) drug therapy; W18.39XA Other fall on same level, initial encounter; Y93.89 Activity, other specified; Y92.89 Other specified places as the place of occurrence of the external cause; Y99.8 Other external cause status
CPT/HCPCS: 36415; 70450; 71045; 72072; 72100; 72125; 78580; 80053; 80061; 82140; 82550; 82553; 83690; 83880; 84439; 84443; 84484; 85007; 85025; 85379; 85610; 85730; 93005; 96374; 96375; 99285; A9540; J2405; J3010